=== PATIENT | female | born 1960 | race Caucasian/White ===

== ENCOUNTER 2021-03-10 08:48 | Observation (INO) ==
--- NOTE | 2021-02-23 13:57 | PAT Medication Instructions ---
Medication Instructions Date of Service February 23, 2021 Home Medications duloxetine 30 mg PO HS gabapentin 300 mg PO BID lisinopril 40 mg PO QAM oxybutynin chloride [Ditropan XL] 10 mg PO QAM potassium gluconate 595 mg PO BID DO NOT take the morning of surgery lisinopril 40 mg PO QAM oxybutynin chloride [Ditropan XL] 10 mg PO QAM potassium gluconate 595 mg PO BID Take morning of surgery With a small sip of water, OTHERWISE NOTHING TO EAT OR DRINK AFTER MIDNIGHT: gabapentin 300 mg PO BID Take evening before surgery duloxetine 30 mg PO HS gabapentin 300 mg PO BID potassium gluconate 595 mg PO BID Other Notes If you have any questions please call us at [phone] or [phone] or [phone] or [phone]
--- NOTE | 2021-02-25 11:57 | Anesthesiology Consultation ---
Date of Service February 25, 2021 Assessment & Plan (1) Encounter for pre-operative examination: Chart Review Chart Review: Acceptable Risk for Surgery (pending preop Covid testing results ) and Patient seen in Pre Admission Testing Per PAT appt on 02/25/21, patient denies any recent travel or large group activities. No known Covid positive contacts or Covid related symptoms. Educated patient to follow up with surgeon's office regarding Covid testing (did leave message with surgeon's office to follow up with patient re: Covid testing)= will await results. Educated on importance of self quarantining, social distancing and wearing mask in public both for the patient and household contacts. Seen by PCP 02/16/2021 = patient seen for preop for left TKA. " Patient is cleared for surgery." History Surgery Operation Date: 03/10/21 09:55 Proposed Procedures p Left Total Knee Arthroplasty - Robinson Nevarez, Height/Weight Height: 5 ft 4 in Weight: 109.5 kg Allergies Allergy/AdvReac Type Severity Reaction Status Date / Time sulindac Allergy Mild rash Verified 02/18/21 12:11 Medications Home Medications Medication Instructions Recorded Confirmed Last Taken duloxetine 30 mg PO HS 02/18/21 02/18/21 Unknown gabapentin 300 mg PO BID 02/18/21 02/18/21 Unknown lisinopril 40 mg PO QAM 02/18/21 02/18/21 Unknown oxybutynin chloride [Ditropan XL] 10 mg PO QAM 02/18/21 02/18/21 Unknown potassium gluconate 595 mg PO BID 02/18/21 02/18/21 Unknown Past Medical History Medical History (Updated 02/25/21 @ 12:21 by Suzan Sullivan PA-C) CKD (chronic kidney disease) Depression Fibromyalgia Stable Hyperlipidemia NO MEDS Hypertension Osteoarthritis Peripheral neuropathy BLE Prediabetes Per records Urinary frequency Exercise / Class Metabolic Activity II 4-5 Yardwork/Stairs/Walk up hill (one flight of stiars - no chest pain or SOB ) Past Family History Family History Father Family history of diabetes mellitus Other No family history of adverse response to anesthesia Past Surgical History Surgical History History of arthroscopy of knee with meniscus repair on left side History of partial hysterectomy History of tooth extraction Past Anesthesia History No Hx of Anesthesia Complications and No Family Hx of Anesthesia Complications History of PONV No Hx of PONV and No Hx of Motion Sickness Social History Smoking Status: Former smoker tobacco type: cigarettes Do You Dip or Chew Tobacco: No Smoking End Date: 2008 Hx Alcohol Use: No Hx Substance Use: No substance use type: does not use Review of Systems Reflux- relieved with Tums Hx of snoring- no hx of sleep study. Patient denies chest pain, shortness of breath, dyspnea on exertion, cough, wheezing, palpitations. No hx of seizures, stroke, [place]. No hx of blood clots or blood transfusions Physical Exam Vital Signs VITALS BP 141/91 P 88 TEMP 97.9 SP02 95% RESP 16 Constitutional no acute distress ENMT Mouth: no TMJ clicking Thyromental Distance: < 3.5 Finger Breadths (3.0) Mallampati Class: III Missing molars Neck + short neck and + thick neck; neck extension not limited Respiratory normal respiratory effort; no respiratory distress Auscultation: lungs clear to auscultation bilaterally; no wheezes Cardiovascular Rate/Rhythm: regular rate and regular rhythm Heart Sounds: no murmur Vessels: no carotid bruit Musculoskeletal Spine: no pain with cervical ROM Extremities: extremities normal to inspection Psychiatric Orientation: alert Testing Laboratory Results 02/25/21 12:09 02/25/21 12:09 PT 10.0 Seconds (9.0-12.0) 02/25/21 12:09 INR 1.0 (0.9-1.1) 02/25/21 12:09 APTT 25.1 Seconds (21.0-31.0) 02/25/21 12:09 Hemoglobin A1c 5.9 % (4.5-5.6) H 02/25/21 12:09 Urine Color Dark Yellow 02/25/21 12:09 Urine Appearance Clear (Clear) 02/25/21 12:09 Urine pH 5.0 (4.5-7.5) 02/25/21 12:09 Ur Specific [place] 1.024 (1.000-1.030) 02/25/21 12:09 Urine Protein Negative (Negative) 02/25/21 12:09 Urine Glucose (UA) Negative (Negative) 02/25/21 12:09 Urine Ketones Trace (Negative) H 02/25/21 12:09 Urine Nitrite Negative (Negative) 02/25/21 12:09 Ur Leukocyte Esterase Negative (Negative) 02/25/21 12:09 Blood Type B Positive 02/25/21 12:09 Antibody Screen NEGATIVE 02/25/21 12:09 Electrocardiogram Date: 02/25/21 Findings: + NSR @ (84bpm) Low voltage QRS. Inferior infarct (cited on or before August 22, 2020). Compared to Aug 22, 2020 EKG- minimal criteria for anterior infarct are no longer present per cardio. (By personal visual inspection- inferior infarct similar in appearance to February 19, 2019 EKG- had subsequent exercise ECHO stress test 04/09/19) Chest X-Ray Date: 02/25/21 Findings: + NAD The nodule described in the prior CT scan is not visible on conventional radiographic imaging Stress Test Date: 04/09/19 Type: exercise (ECHO ) Resting EF: 55-60% Resting LV Function: normal Resting RWMA: + none Valvular Disease: no significant valvular disease Stress echo was negative for inducible ischemia. Hypertensive BP response to exercise. Below average exercise tolerance. MPHR 93%. 7.0 METS achieved. Stress EKG response showed no evidence of ischemia. No arrhythmias noted with stress. Normal LV chamber size and wall thickness. Grade 1 diastolic dysfunction.
--- NOTE | 2021-02-25 12:33 | XRay Report ---
XR chest Pre-admission PA/Lat CLINICAL HISTORY: Preoperative chest. LEFT UPPER LOBE PULMONARY NODULE COMPARISON STUDY: CT scan dated 08/22/2020 FINDINGS: The cardiac and mediastinal contours are normal. There is no evidence of focal pulmonary co nsolidation. There is no evidence of failure. No pleural effusions are visualized.[The nodule describ ed in the prior CT scan is not visible on conventional radiographic imaging IMPRESSION: No active disease in the chest. ACT 112: Negative or not required by law. Electronically signed by: Kartik Banks M.D. 02/25/2021 12:31 PM
[2021-02-25 13:17] LABS: Appearance Urine Clear (Clear); Bilirubin Urine Negative (Negative); Blood Urine Negative (Negative); Color Urine Dark Yellow; Glucose Urine UA Negative (Negative); Ketones Urine Trace (Negative); Leukocyte Esterase Urine Negative (Negative); Nitrite Urine Negative (Negative); Protein Urine Negative (Negative); Specific Gravity Urine 1.024 (1.000-1.030); Urobilinogen Urine Negative (Negative)
[2021-02-25 13:27] LABS: Albumin Level 3.9 gm/dl (3.4-5.0); BUN Creatinine Ratio 23.9 (10-20); Calcium 10.2 mg/dl (8.5-10.1); Creatinine Clr Calc Pharmacy 78.8 ml/min; Est GFR (Non-African American) 67.3; Potassium 4.2 mmol/L (3.5-5.1)
[2021-02-25 13:32] LABS: Basophils # (auto) 0.04 K/uL (0-0.2); Basophils % (auto) 0.4 %; Eosinophils # (auto) 0.75 K/uL (0-0.5); Eosinophils % (auto) 8.2 %; Hematocrit (blood only) 41.2 % (37-47); Hemoglobin 13.9 g/dL (12.0-16.0); Immature Granulocytes # (auto) 0.02 K/uL (0.00-0.02); Immature Granulocytes % (auto) 0.2 %; Lymphocytes # (auto) 2.16 K/uL (1.2-3.4); Lymphocytes % (auto) 23.6 %; Mean Corpuscular Hemoglobin 27.6 pg (25-34); Mean Corpuscular Hgb Conc 33.7 g/dL (32-36); Mean Corpuscular Volume 81.9 fL (80-100); Monocytes # (auto) 0.69 K/uL (0.11-0.59); Monocytes % (auto) 7.5 %; Neutrophils % (auto) 60.1 %; Partial Thromboplastin Time 25.1 Seconds (21.0-31.0); Platelet Count 286 K/uL (130-400); RDW Coefficient of Variation 13.7 % (11.5-14.5); RDW Standard Deviation 41.1 fL (36.4-46.3); Red Blood Count 5.03 M/uL (4.2-5.4); White Blood Count 9.16 K/uL (4.8-10.8)
[2021-02-25 13:55] LABS: Estimated Average Glucose 123 mg/dl; Hemoglobin A1C 5.9 % (4.5-5.6)
--- NOTE | 2021-02-25 16:24 | Electrocardiogram Report ---
Test Reason : Blood Pressure : / mmHG Vent. Rate : 084 BPM Atrial Rate : 084 BPM P-R Int : 166 ms QRS Dur : 092 ms QT Int : 378 ms P-R-T Axes : 049 -05 067 degrees QTc Int : 446 ms Normal sinus rhythm Low voltage QRS Inferior infarct (cited on or before 22-AUG-2020) Abnormal ECG When compared with ECG of 22-AUG-2020 18:40, Minimal criteria for Anterior infarct are no longer Present Confirmed by Sheng Brannon ([id number]) on 02/25/2021 4:24:39 PM Referred By: Robinson Nevarez Confirmed By:Sheng Brannon
--- NOTE | 2021-03-06 21:47 | History & Physical Report ---
Date of Service March 10, 2021 Assessment & Plan (1) Degenerative joint disease of left knee: I have indicated the patient for left total knee replacement. The risks, benefits and complications of surgery were explained to the patient which include but not limited to infection, acute blood loss, DVT/PE, injury to nerves, vessels, bone, soft tissue, arthrofibrosis, chronic pain, failure of the prosthesis, knee dislocation, leg length discrepancy, need for additional surgery, cardiac and pulmonary events and . The patient wished to proceed with surgery and informed consent was obtained at this time. We will plan for 81mg ASA BID post-operatively for DVT prophylaxis. Upon discharge the patient will be discharged home with home health services. Appropriate clearances by PCP were obtained. History of Present Illness Chief Complaint: Left knee pain/DJD Primary Care Provider: Mame Garza MD The patient is a 60 year old female who presents with complaints of severe left knee pain and DJD. The patient has failed outpatient conservative treatments to this point which included NSAIDs, IA corticosteroid injection, JEFFERSON injection, home exercise/walking program. The patient's pain and limited function have progressed to the point where they severely hinder their activities of daily living and they no longer tolerate exercise programs. They are requesting to proceed with total knee replacement surgery. Allergies Allergy/AdvReac Type Severity Reaction Status Date / Time sulindac Allergy Mild rash Verified 03/10/21 09:35 Home Medications Medication Instructions Recorded Confirmed Type duloxetine 30 mg PO HS 02/18/21 03/10/21 History gabapentin 300 mg PO BID 02/18/21 03/10/21 History lisinopril 40 mg PO QAM 02/18/21 03/10/21 History oxybutynin chloride [Ditropan XL] 10 mg PO QAM 02/18/21 03/10/21 History potassium gluconate 595 mg PO BID 02/18/21 03/10/21 History Past Med/Surg History Medical History CKD (chronic kidney disease) Depression Fibromyalgia Stable Hyperlipidemia NO MEDS Hypertension Osteoarthritis Peripheral neuropathy BLE Prediabetes Per records Urinary frequency Surgical History History of arthroscopy of knee with meniscus repair on left side History of partial hysterectomy History of tooth extraction Family History Father Family history of diabetes mellitus Other No family history of adverse response to anesthesia Social History Smoking Status: Former smoker Smoking End Date: 2008; Second Hand Exposure: Yes ( A CHILD); Do You Dip or Chew Tobacco: No; Tobacco Cessation Education Requested by Patient: No Hx Alcohol Use: No Hx Substance Use: No Preferred Language: Danish Lift Supervisor Required: No Beliefs That Will Affect Care: None Current Living Situation: Significant Other Feels Safe at Home: Yes Safety Concerns: Feels Safe At This Time Assistive Devices: Cane and Glasses Review of Systems Review of Systems: All systems reviewed & are unremarkable except as noted in HPI & below Constitutional: as per Subjective / HPI Physical Exam Physical Exam: LLE NVSI +EHL/FHL/TA/GS SILT grossly, +2 DP pulse, compartments soft NT, limited painful ROM, +creptius. Constitutional: WD/WN, vitals as above Eyes: PERRL, conjunctivae normal, anicteric sclerae ENMT: external ear and nose normal, oropharynx normal Neck: trachea midline, no thyromegaly Respiratory: normal respiratory effort, lungs clear to auscultation Cardiovascular: RRR, no murmur, no edema Gastrointestinal (Abdomen): normal bowel sounds, soft, nontender, no hepatosplenomegaly Musculoskeletal: no cyanosis or clubbing, extremities motor strength 5/5 Skin: no rashes, warm and dry Neurologic: patellar DTR's 2+ bilat, sensation intact Psychiatric: A+Ox3, euthymic affect Lymphatic: no cervical or axillary lymphadenopathy Results & Data Results & Data ([facility]) Diagnostic Findings Multiple views of the knee demonstrates severe tricompartmental DJD with complete loss of the medial joint space. +osteophytes, +sclerosis. Pre Admission Testing Addendum Laboratory Results 02/25/21 12:09 02/25/21 12:09 PT 10.0 Seconds (9.0-12.0) 02/25/21 12:09 INR 1.0 (0.9-1.1) 02/25/21 12:09 APTT 25.1 Seconds (21.0-31.0) 02/25/21 12:09 Hemoglobin A1c 5.9 % (4.5-5.6) H 02/25/21 12:09 Urine Color Dark Yellow 02/25/21 12:09 Urine Appearance Clear (Clear) 02/25/21 12:09 Urine pH 5.0 (4.5-7.5) 02/25/21 12:09 Ur Specific [place] 1.024 (1.000-1.030) 02/25/21 12:09 Urine Protein Negative (Negative) 02/25/21 12:09 Urine Glucose (UA) Negative (Negative) 02/25/21 12:09 Urine Ketones Trace (Negative) H 02/25/21 12:09 Urine Nitrite Negative (Negative) 02/25/21 12:09 Ur Leukocyte Esterase Negative (Negative) 02/25/21 12:09 Blood Type B Positive 02/25/21 12:09 Antibody Screen NEGATIVE 02/25/21 12:09
[~2021-03-10 08:48] MED LIST: ACETAMINOPHEN 500 MG TAB PO SCH; BUPIVACAINE 0.5 % 5 MG/1 ML PF 10ML VIAL ONE; CeleBREX 200 MG CAP PO SCH; FAMOTIDINE 20 MG TAB PO SCH; GABAPENTIN 600 MG DOSE PO SCH; LR 500ML BOLUS, THEN 15ML/HR IV SCH; METOCLOPRAMIDE HCL 10 MG TABLET PO SCH; ROPIVACAINE 0.5% 5 MG/ML 30 ML VIAL ONE; ROPIVACAINE 0.5% HCL/PF 150 MG, BUPIVACAINE 0.75% MPF 20 ML, EPINEPHrine 30MG/30ML (OR ... INSTIL SCH; Scopolamine 1 MG TDSY TD SCH; TRANEXAMIC ACID 1,000 MG **IV Intra-op IV SCH; TRANEXAMIC ACID 1,000 MG **IV Pre-op IV SCH; ceFAZolin 2000MG 2,000 MG/15 ML SYR IV SCH; dexAMETHasone 4 MG TAB PO SCH
[2021-03-10] MEDS ORDERED: MIDAZOLAM HCL 1 MG/ML 2ML VIAL ONE (10:06)
[2021-03-10] MEDS ORDERED: fentaNYL citrate 100 MCG/2 ML VIAL ONE (10:07)
[2021-03-10 10:55] LABS: Influenza A virus by PCR Negative (Neg); Influenza B virus by PCR Negative (Neg); RSV by PCR Negative (Neg); SARS CoV2 RNA(COVID-19) InHosp NEGATIVE (Negative)
[2021-03-10] MEDS ORDERED: ePHEDrine sulfate 50 MG/ML AMP IV PRN (11:59)
[2021-03-10] MEDS ORDERED: fentaNYL citrate 100 MCG/2 ML VIAL IV PRN (11:59)
[2021-03-10] MEDS ORDERED: ATROPINE SULFATE 0.1 MG/ML 10ML SYR IV PRN (11:59)
[2021-03-10] MEDS ORDERED: HYDROmorphone INJ 2 MG/ML SYR/VIAL IV PRN (11:59)
--- NOTE | 2021-03-10 12:02 | History & Physical Bridge Note ---
Date of Service March 10, 2021 History & Physical Bridge Note I have examined the patient, reviewed the History & Physical and in the interval since the performance of the History & Physical I have noted the following changes of clinical significance: no changes noted
[2021-03-10] MEDS ORDERED: ORTHO JOINT ANESTHETIC ONE (12:19)
[2021-03-10] MEDS ORDERED: PHENYLEPHRINE HCL 10 MG/ML VIAL ONE (12:58)
[2021-03-10] MEDS ORDERED: PHENYLEPHRINE 100MCG/ML 5ML SYR ONE (12:58)
[2021-03-10] MEDS ORDERED: ePHEDrine sulfate 50 MG/ML SYR ONE (12:58)
--- NOTE | 2021-03-10 14:10 | Post Operative Brief Note ---
Immediate Post Op Note v1 Date of Surgery March 10, 2021 Pre & Post Diagnosis Operation Date: 03/10/21 11:35 Pre-Op Diagnosis: Unilateral Primary Osteoarthritis, Left Knee Post-Op Diagnosis: Unilateral Primary Osteoarthritis, Left Knee I identified the patient and participated in the time-out.: Yes Procedure Operation Date: 03/10/21 11:35 Actual Procedures p Left Total Knee Arthroplasty, Cemented(Left) - Robinson Nevarez DO Surgeon Robinson Nevarez DO Product Safety And Standards Engineer Ruben Roldan Estimated Blood Loss 55 Findings Consistent with Post-Op Diagnosis Fluids See anesthesia report Specimens Proximal tibia and distal femur bone fragments Anesthesia Type Spinal MAC Complications none Disposition Disposition: Recovery Room Overlapping Procedure I was present for: the critical portions of procedure. I was immediately available: during the entire case. Back up surgeon: was not required during procedure.
--- NOTE | 2021-03-10 14:12 | Operative Report ---
Post Operative Report Pre & Post Diagnosis Operation Date: 03/10/21 11:35 Pre-Op Diagnosis: Unilateral Primary Osteoarthritis, Left Knee Post-Op Diagnosis: Unilateral Primary Osteoarthritis, Left Knee I identified the patient and participated in the time-out.: Yes Procedure Operation Date: 03/10/21 11:35 Actual Procedures p Left Total Knee Arthroplasty, Cemented(Left) - Robinson Nevarez DO Surgeon Robinson Nevarez DO Boot And Saddle Repair Person Ruben Roldan Estimated Blood Loss 55 Findings Consistent with Post-Op Diagnosis Fluids See anesthesia report Specimens Proximal tibia and distal femur bone fragment Anesthesia Type Spinal MAC Complications none Disposition Disposition: Recovery Room Indications The patient is a 60-year-old female presents with long history of severe left knee tricompartmental DJD and failed outpatient conservative treatments including NSAIDs, bracing, injections and home walking/exercise program. The patient's symptoms have progressed to the point where it has been difficult to perform normal activities of daily living. I have indicated the patient for a left total knee arthroplasty, the risks and benefits and complications of the procedure include but are not limited to infection bleeding damage to bone, nerves, vessels, surrounding soft tissue, blood clots, loss of function, leg length discrepancy, dislocation, failure of the components, need for additional surgery and . The patient wished to proceed with surgery at this time and informed consent was obtained. Appropriate clearances were obtained. Description of Procedure COMPONENTS USED: Db persona knee system: Femur size 6 standard, Tibia size D, Tibial articulating surface 10 PS, Patella 29 mm Following induction of spinal anesthesia, a tourniquet was applied to the proximal aspect of the thigh and the patient's left leg was prepped and draped in the usual sterile manner. A timeout was performed, patient identified and site paco confirmed. Appropriate pre-operative IV antibiotics were given. The limb was exsanguinated with an Esmarch bandage and tourniquet was inflated to 300 mmHg. A longitudinal midline incision was made over the anterior knee. Subcutaneous tissue was sharply dissected down to fascia. Electrocautery was used for hemostasis. Next a parapatellar arthrotomy was performed. Patella was everted and the knee was flexed. A Palacio retractor was used to expose the synovium above on the anterior aspect of the femur and removed down to bone. Next, the anterior fat pad was removed to aid in visualization. The medial face of the tibia was cleared of soft tissue first with a Bovie and a richter elevator. This tissue was retracted posteriorly using a blunt Hohmann. Next, the extra-medullary tibial cutting guide was placed to the anterior aspect of the tibia. The tibia resection level was set taking 2mm from the defective tibial condyle. Resection depth was once again confirmed with paul wing. The medial and lateral collateral ligament was protected with two Hohmann retractors. The tibia guide was removed and proximal tibial bone fragment removed utilizing straight osteotome, electrocautery and Bailey. Next, the distal femur intramedullary canal was accessed utilizing the step drill. The intramedullary distal femur cutting guide was placed into the canal and pinned into place. The distal femur was cut on the 5 degree setting. Next the cutting guide was removed and the femur was sized. Care was taken to ensure appropriate pararescue manager all rotation and 3 degree holes were drilled. A size 6 4-in-1 cutting block was placed on the distal end of the femur and secured into place with two short headed screws. Two bent Hohmann retractors were placed to protect the medial and lateral collateral ligaments. The oscillating saw was used to cut anterior, posterior, anterior chamfer and posterior chamfer. The four and one cutting block was removed and bone fragments excised. Laminar payment manager was placed laterally and the ACL and PCL were removed followed by the medial meniscus and posterior medial osteophytes. Aquamantys was utilized for any posterior medial bleeders and Orthomix injected into the posterior medial capsule. A laminar payment manager was then placed in the medial compartment and the lateral meniscus and posterior osteophytes were removed. Aquamantys was utilized for any posterior lateral bleeders and Orthomix injected into the posterior lateral capsule. Next, drop massiel and spacer block were placed with the leg in flexion and extension to assess alignment and flexion/extension gaps. Next, the proximal tibia was assessed and two bent Hohmans were placed medial and lateral to aid in visualization. The appropriate tibia size and rotation was selected and a size D tibial plate was pinned into place with appropriate rotation. Preparation of the tibia was completed utilizing the matching tibial drill and broach. I then turned my attention back to the distal femur in a trial femoral component was impacted into place. Appropriate femoral width was assessed and selected. Next the femur PS box cut guide was placed and cut made with the reciprocal saw and the PS box provisional placed. A trial size 10 PS tibia articular tray was placed and varus-valgus balance assessed in 0 degrees of extension and 30, 60 and 90 degrees of flexion. A final tibial articular surface size 10 PS was chosen. Assess was gained to the patella and caliper utilized to measure width. The patella reamer was utilized and remaining bone removed with oscillating saw. A size 29 mm patella button was selected and the patella pegs drilled. Trial patella button was placed and tracking was assessed. The knee was found to be well balanced, well aligned with excellent patella tracking. The trials were removed and final components were obtained and assembled. The knee was irrigated copiously with sterile saline solution mixed with bacitracin. Access to the proximal tibia was once again obtained utilizing to the Hohmans and the proximal tibia and distal femur were dried with lap sponges. The final components were cemented into place and all excess cement was removed. A trial tibial articular surface was placed while cemented hardened. Knee stability was once again assessed and the final component inserted. A Betadine soak was performed. After 3 minutes, the knee was once more irrigated with copious sterile saline solution with bacitracin. The knee was injected with the remaining Orthomix which includes a combination of Ropivicaine 0.5% 150mg, Bupivicaine 0.5%/Epinephrine 1:200,000 30ml, Toradol 30mg, Dexamethasone 4mg, Ketamine 10mg, Clonidine 100mcg and NSS 30ml solution. The capsulotomy was closed with #1 Vicryl followed by subcutaneous closure with 2-0 Vicryl suture and a 3-0 V-lock suture. Skin was closed with natalie. A sterile dry dressing was applied which included karen incisional VAC, web roll and Tony wrap. Tourniquet was deflated at 83 minutes. The patient tolerated the procedure well and was taken to the PACU in stable condition. Due to the complex nature of the procedure, the entire surgery was performed with the operational assistance of Ruben Roldan PA-C. The assistant cook, under direct supervision, was involved in the actual performance of all aspects of the surgical procedure including patient positioning, hemostasis, tissue retraction, instrument management and wound closure. I attest to the content of the Intraoperative Record and any orders documented therein. Any exceptions are noted below.
--- NOTE | 2021-03-10 15:04 | XRay Report ---
XR knee LT 1 or 2V routine HISTORY: 60 years-old Female Surgical Post Op [knee total joint arthroplasty COMPARISON: None TECHNIQUE: 2 views of the left knee FINDINGS: Left knee total joint arthroplasty and patella resurfacing. Anterior midline skin natalie with expect ed postsurgical soft tissue swelling and deep tissue air. No acute fracture or unexpected opaque fore ign body. IMPRESSION: Left knee total joint arthroplasty and patella resurfacing with expected postoperative ch anges. ACT 112: Negative or not required by law. The above report was generated using voice recognition software. It may contain grammatical, syntax o r spelling errors. Electronically signed by: Jason Walton M.D. 03/10/2021 3:03 PM
[2021-03-10] MEDS: SODIUM CHLORIDE 0.9% 1000ML 1,000 ML IV SCH (15:10)
[2021-03-10] MEDS ORDERED: oxyCODONE HCL IR 5 MG TAB (IMMEDIATE RELEASE) PO PRN (15:12)
[2021-03-10] MEDS ORDERED: diphenhydrAMINE Capsule 25 MG CAP PO PRN (15:12)
[2021-03-10] MEDS ORDERED: NALOXONE HCL 0.4 MG/1 ML VIAL/CARP IV PRN (15:12)
[2021-03-10] MEDS ORDERED: bisacodyL 10 MG SUPP PR PRN (15:12)
[2021-03-10] MEDS ORDERED: HYDROmorphone INJ 0.5 MG/0.5 ML SYR IV PRN (15:12)
[2021-03-10] MEDS ORDERED: METOCLOPRAMIDE HCL INJ 5 MG/ML 2 ML VIAL IV PRN (15:12)
[2021-03-10] MEDS ORDERED: MAGNESIUM HYDROXIDE SUSP 30 ML UDC PO PRN (15:12)
[2021-03-10] MEDS ORDERED: ONDANSETRON INJ 2 MG/ML 2 ML VIAL IV PRN (15:12)
[2021-03-10] MEDS: KETOROLAC TROMETHAMINE 15 MG/ML VIAL IV SCH ×2 (15:55→21:29)
[2021-03-10] MEDS: Scopolamine CHECK PATCH PLACEMENT SCH (15:56)
--- NOTE | 2021-03-10 16:19 | Anesthesiology Progress Note ---
Date of Service March 10, 2021 Anesthesia Post Procedure Vital Signs Vital Signs: Temp Pulse Pulse Pulse Resp BP BP 03/10/21 16:04 36.4 C L 92 H 16 150/83 H 03/10/21 15:35 85 18 131/87 03/10/21 15:05 36.9 C 91 H 16 104/69 03/10/21 14:50 36.5 C 96 H 16 110/66 03/10/21 14:40 36.5 C 108 H 17 116/64 03/10/21 10:18 36.8 C 68 20 151/99 H Pulse Ox 03/10/21 16:04 99 03/10/21 15:35 96 03/10/21 15:05 95 03/10/21 14:50 96 03/10/21 14:40 96 03/10/21 10:18 94 Transfer of Care Handoff Completed per policy Notes Mental Status: alert / awake / arousable and participated in evaluation Patient Amnestic to Procedure: Yes Nausea / Vomiting: adequately controlled Pain: adequately controlled Airway Patency, RR, SpO2: stable & adequate BP & HR: stable & adequate Hydration State: stable & adequate Neuraxial Anesthesia: was administered and sensory block is resolving Anesthetic Complications: no major complications apparent
--- NOTE | 2021-03-10 19:21 | Orthopedic Progress Note ---
Date of Service March 10, 2021 Assessment & Plan (1) Degenerative joint disease of left knee: Status post left total knee arthroplasty -Ancef x24 -DVT prophylaxis: SCDs, teds, 81 mg ASA twice daily -Weight-bear as tolerates left lower extremity -PT/OT -Postoperative x-ray demonstrates a well aligned well fixed prosthesis without fracture or dislocation A.m. labs DC planning Admission and Anticipated Discharge Date Admission Date: March 10, 2021 Subjective Post Operative Progress Note Patient seen sitting up in bed, comfortable, denies complaints, pain well cont rolled, no acute issues. Review of Systems Review of Systems: All systems reviewed & are unremarkable except as noted in HPI & below Constitutional: as per Subjective / HPI Physical Exam Physical Exam: LLE NVSI +EHL/FHL/TA/GS SILT grossly, +2 DP pulse, compartments soft NT, dressing cdi. Constitutional: WD/WN, vitals as above Results & Data ([facility]) Vital Signs (Past 12 Hours) Vital Signs Temp Pulse Pulse Pulse Resp BP BP 03/10/21 19:04 36.6 C 89 16 127/77 03/10/21 18:12 36.7 C 96 H 18 143/83 H 03/10/21 17:05 36.6 C 100 H 20 145/91 H 03/10/21 16:04 36.4 C L 92 H 16 150/83 H 03/10/21 15:35 85 18 131/87 03/10/21 15:05 36.9 C 91 H 16 104/69 03/10/21 14:50 36.5 C 96 H 16 110/66 03/10/21 14:40 36.5 C 108 H 17 116/64 03/10/21 10:18 36.8 C 68 20 151/99 H Pulse Ox 03/10/21 19:04 95 03/10/21 18:12 97 03/10/21 17:05 95 03/10/21 16:04 99 03/10/21 15:35 96 03/10/21 15:05 95 03/10/21 14:50 96 03/10/21 14:40 96 03/10/21 10:18 94
[2021-03-10] MEDS ORDERED: SENNA 8.6 MG TAB PO SCH (21:00)
[2021-03-10] MEDS ORDERED: DULoxetine HCL 30 MG CAP PO SCH (21:00)
[2021-03-10] MEDS: DOCUSATE SODIUM 100 MG CAP PO SCH (21:20)
[2021-03-10] MEDS: GABAPENTIN 300 MG CAP PO SCH (21:21)
[2021-03-10] MEDS: ACETAMINOPHEN 500 MG TAB PO SCH (21:22)
[2021-03-10] MEDS: ceFAZolin 2000MG 2,000 MG/15 ML SYR IV SCH (21:28)
[2021-03-11] MEDS: Scopolamine CHECK PATCH PLACEMENT SCH ×2 (00:45→08:34)
[2021-03-11] MEDS: SODIUM CHLORIDE 0.9% 1000ML 1,000 ML IV SCH (01:47)
[2021-03-11] MEDS: KETOROLAC TROMETHAMINE 15 MG/ML VIAL IV SCH ×2 (03:18→08:37)
[2021-03-11] MEDS: ceFAZolin 2000MG 2,000 MG/15 ML SYR IV SCH (05:42)
[2021-03-11] MEDS: ACETAMINOPHEN 500 MG TAB PO SCH ×2 (05:43→13:39)
[2021-03-11 07:01] LABS: Hematocrit (blood only) 35.3 % (37-47); Hemoglobin 11.8 g/dL (12.0-16.0); Mean Corpuscular Hemoglobin 27.3 pg (25-34); Mean Corpuscular Hgb Conc 33.4 g/dL (32-36); Mean Corpuscular Volume 81.7 fL (80-100); Mean Platelet Volume 10.4 fL (7.4-10.4); Platelet Count 241 K/uL (130-400); RDW Coefficient of Variation 13.3 % (11.5-14.5); RDW Standard Deviation 40.2 fL (36.4-46.3); Red Blood Count 4.32 M/uL (4.2-5.4); White Blood Count 16.55 K/uL (4.8-10.8)
[2021-03-11 07:49] LABS: BUN Creatinine Ratio 20.8 (10-20); Calcium 8.6 mg/dl (8.5-10.1); Creatinine Clr Calc Pharmacy 59.4 ml/min; Est GFR (African American) 55.6; Potassium 4.5 mmol/L (3.5-5.1)
[2021-03-11] MEDS: DOCUSATE SODIUM 100 MG CAP PO SCH (08:34)
[2021-03-11] MEDS: GABAPENTIN 300 MG CAP PO SCH (08:34)
[2021-03-11] MEDS ORDERED: POTASSIUM CHLORIDE 10 MEQ TABCR PO SCH (09:00)
[2021-03-11] MEDS ORDERED: ASPIRIN 81 MG ECTAB PO SCH (09:00)
[2021-03-11] MEDS ORDERED: OXYBUTYNIN CHLORIDE XL 5 MG TABCR PO SCH (09:00)
[2021-03-11] MEDS ORDERED: lisinopril 40 MG TAB PO SCH (09:00)
[2021-03-11] MEDS ORDERED: MULTIVITAMIN TAB PO SCH (09:00)
--- NOTE | 2021-03-11 11:55 | Orthopedic Progress Note ---
Date of Service March 11, 2021 Assessment & Plan (1) Degenerative joint disease of left knee: Status post left total knee arthroplasty POD#1 -Ancef x24 -DVT prophylaxis: SCDs, teds, 81 mg ASA twice daily -Weight-bear as tolerates left lower extremity -PT/OT -Postoperative x-ray demonstrates a well aligned well fixed prosthesis without fracture or dislocation A.m. labs - as above, hgb 11.8 DC planning - home with HH Admission and Anticipated Discharge Date Admission Date: March 10, 2021 Subjective Post Operative Progress Note Patient seen sitting up in bed, comfortable, denies complaints, pain well controlled, no acute issues. Denies F/C/N/V/SOB/CP. Review of Systems Review of Systems: All systems reviewed & are unremarkable except as noted in HPI & below Constitutional: as per Subjective / HPI Physical Exam Physical Exam: LLE NVSI +EHL/FHL/TA/GS SILT grossly, +2 DP pulse, compartments soft NT, dressing cdi. Constitutional: WD/WN, vitals as above Results & Data ([facility]) Vital Signs (Past 12 Hours) Vital Signs Temp Pulse Resp BP Pulse Ox 03/11/21 08:38 36.8 C 84 16 132/75 95 03/11/21 07:32 37.0 C 97 H 16 112/68 98 03/11/21 04:26 37.0 C 97 H 16 112/68 98 Laboratory Results 03/11/21 03/11/21 Range/Units 06:48 06:48 WBC 16.55 H (4.8-10.8) K/uL RBC 4.32 (4.2-5.4) M/uL Hgb 11.8 L (12.0-16.0) g/dL Hct 35.3 L (37-47) % MCV 81.7 (80-100) fL MCH 27.3 (25-34) pg MCHC 33.4 (32-36) g/dL RDW Std Deviation 40.2 (36.4-46.3) fL RDW Coeff of Melisa 13.3 (11.5-14.5) % Plt Count 241 (130-400) K/uL MPV 10.4 (7.4-10.4) fL Sodium 138 (136-145) mmol/L Potassium 4.5 (3.5-5.1) mmol/L Chloride 109 H (98-107) mmol/L Carbon Dioxide 22 (21-32) mmol/L Anion Gap 7.0 (3-11) BUN 26 H (7-18) mg/dl Creatinine 1.23 H (0.6-1.2) mg/dl Est Cr Clr Drug Dosing 59.4 ml/min Est GFR ( Amer) 55.6 Est GFR (Non-Af Amer) 48.0 BUN/Creatinine Ratio 20.8 H (10-20) Glucose 154 H (70-99) mg/dl Calcium 8.6 (8.5-10.1) mg/dl
--- NOTE | 2021-03-11 17:51 | Discharge Summary ---
Date of Service March 11, 2021 Admission HPI Per Admitting Provider The patient is a 60 year old female who presents with complaints of severe left knee pain and DJD. The patient has failed outpatient conservative treatments to this point which included NSAIDs, IA corticosteroid injection, JEFFERSON injection, home exercise/walking program. The patient's pain and limited function have progressed to the point where they severely hinder their activities of daily living and they no longer tolerate exercise programs. They are requesting to proceed with total knee replacement surgery. Principal Diagnosis Left total knee replacement Discharge Exam LLE NVSI +EHL/FHL/TA/GS SILT grossly, +2 DP pulse, compartments soft NT, dressing cdi. Constitutional WD/WN, vitals as above Discharge Data Allergies Allergy/AdvReac Type Severity Reaction Status Date / Time sulindac Allergy Mild rash Verified 03/10/21 09:35 Procedures Performed Operation Date: 03/10/21 11:35 Actual Procedures p Left Total Knee Arthroplasty, Cemented(Left) - Robinson Nevarez DO Ordered Studies 03/10/21 05:00 US - OR guided needle placemen Routine Hospital Course (1) Degenerative joint disease of left knee: The patient is a 60 -year-old female who presents with long standing h istory of severe left knee DJD and failed outpatient conservative treatments. The patient's symptoms have progressed to the point where it has been difficult to perform even normal activities of daily living. I indicated the patient for a left total knee arthroplasty, the risks, benefits and complications of the procedure include but not limited to infection, bleeding, damage to bone, nerves, vessels, surrounding soft tissue, may develop blood clots, loss of function, leg length discrepancy, dislocation, failure of the components, loosening of the components, the need for additional surgery and . The patient wished to proceed with surgery at this time and informed consent was obtained. Hospital Course: On 03/10/21 the patient was taken to the operating room, adequate anesthesia administered and underwent a left total knee arthroplasty. The patient tolerated the procedure well and was taken to the PACU in stable condition. Post-operatively the patient was started on a DVT ppx medication and given appropriate IV antibiotics. Consults were placed to physical therapy, occupational therapy and case management. On POD#1, the patient did well overnight and their pain was well controlled. Labs were drawn and the Hgb was 11.8. The patient progressed well with PT. Dressings were changed at this time and the incision was clean, dry and intact. The patients hospital stay was relatively uneventful and they were deemed stable by the orthopedic team and consultants to be discharged home with HH on 03/10/21. Discharge Instructions: Upon discharge the patient may weight bear as tolerates through their operative extremity. They were instructed to keep the incision clean and dry at all times. The patient may shower but should not submerge the incision, avoid bat memo, pools and hot tubs. The patient was given a script for pain medication and should take as instructed. The patient was given a script for DVT ppx 81mg ASA BID and should take as directed. The patient was instructed to not drive or travel for long distances until cleared to do so. If the patient develops any symptoms of fevers, chills, nausea, vomiting, increased redness, swelling, pain or drainage from the surgical site, they should notify the office and/or proceed to the nearest emergency room. The patient should follow up in 10-14 days after surgery for their routine post-operative follow-up appointment and should call the office, to confirm the date and time. Status post left total knee arthroplasty POD#1 -Ancef x24 -DVT prophylaxis: SCDs, teds, 81 mg ASA twice daily -Weight-bear as tolerates left lower extremity -PT/OT -Postoperative x-ray demonstrates a well aligned well fixed prosthesis without fracture or dislocation A.m. labs - as above, hgb 11.8 DC planning - home with Total Time Total Time Spent Total Time Spent (In Minutes): 30 Discharge Plan Discharge Items Patient Disposition: Home - Home Health Services Reason For Visit: Unilateral Primary Osteoarthritis, Left Knee Discharge Diagnosis: Left total knee replacement Condition on Discharge: Good Activity: Per Instructions section Lifting: Wait until after follow-up appointment Bathing: Keep incision dry Bathing Comment: No bathing, pools or hot tubs. Sexual Activity: Wait until after follow-up appointment Exercise/Sports: Wait until after follow-up appointment Driving/Machine Use: No driving. Weightbearing: Full weightbearing Non-emergency contact: Primary Care Provider and Surgeon Call non-emergency contact if: you have any medication questions, your symptoms worsen, your pain is not controlled, your pain is worsening, your pain is unusual for you, your pain is concerning for you, you have a fever, your temperature is above 101, your wound has increased redness, your wound has increased drainage and your wound pain has increased Follow-up/Referrals: Mame Garza MD [Primary Care Provider] - Diet: Regular Addtl Attending Provider Instructions: ACTIVITY RECOMMENDATIONS: SELF CARE INSTRUCTIONS AFTER TOTAL KNEE REPLACEMENT A. You may need to continue a physical therapy program after discharge from the hospital. There are several options available to you. Your doctor will assist you in selecting the best one for you. 1. An out-patient facility 2 to 3 times a week for therapy or home therapy. 2. Continue working on all exercises taught to you in the hospital. Your goals should be to increase bending of your knee to 90 degrees and beyond and to fully straighten your knee. B. You may progress at your own pace from walking with a walker or crutches to a cane; then to no assistive devices. C. Make walking a part of your daily routine. Be up as much as comfortable with rest periods throughout the day. Rest with leg elevation is very important. Use the ice wrap frequently for the first 3-4 weeks. D. There are no restrictions on activities. You may ride in a car, shop, participate in enterprise software developer and all social activities. E. Wear the long elastic stockings (LUIS FELIPE hose) 20 hours a day for 2 weeks after surgery. They can be removed several times a day for laundering and for a bath. F. You may shower, no tub baths until cleared by your doctor. SPECIAL CARE INSTRUCTIONS: VERY IMPORTANT TO READ AND REVIEW A. There are a few signs you need to watch for after you are home. Call [facility] [place] if you notice any of the followin. Increased severe knee pain. Some pain is expected especially when you exercise. 2. Increased swelling in your leg or knee; pain or swelling of the calf muscle in either lower leg. 3. Any fluid drainage from the incision. 4. Shortness of breath or chest pain. B. Please call [facility] [place] at if you have any concerns or questions about your operation or recovery. The doctor or his nurse will return your call promptly. C. You must take antibiotics before dental work, bladder, bowel or other s urgery. Your doctor will provide you with a permanent care to carry describing this precaution. IMPORTANT: * REMEMBER TO TAKE ASPIRIN, 81 MG, TWICE DAILY FOR 4 WEEKS UNLESS OTHERWISE DIRECTED. THIS IS YOUR BLOOD THINNER. * HIGH RISK PATIENTS MAY BE PRESCRIBED A STRONGER BLOOD THINNER. THIS WILL BE PROVIDED AT DISCHARGE. * CALL IF INCREASED PAIN, REDNESS, DRAINAGE OR FEVER GREATER THAT 101. * WEAR LUIS FELIPE HOSE 20 HOURS PER DAY FOR 2 WEEKS. *BRENNA incisional vac is a special dressing covering your incision. This dressing provides a sterile dry environment while you are healing. The dressing is to be left in place for 7 days post-operatively. Your home nurse or surgeon will remove. If you develop any redness or blisters or have any questions notify your surgeon immediately. FOLLOW UP VISIT: If appointment is not already scheduled: Please call [facility] [place] to make a follow-up appointment for 2 weeks after your surgery at . Pending Studies at Discharge: No Stand-Alone Forms: My [facility], Opioid Pain Management, Smoking Cessation Medications and DC Order Prescriptions: New acetaminophen 500 mg Tablet 1,000 mg PO Q8 PRN (Reason: fever or pain) Qty: 90 RF: 0 aspirin 81 mg Tablet,Delayed Release (Dr/Ec) 81 mg PO BID Qty: 56 RF: 0 oxycodone 5 mg Tablet 5 mg PO Q6H MDD 4 PRN (Reason: pain) Qty: 30 RF: 0 sennosides [Senokot] 8.6 mg Tablet 17.2 mg PO HS PRN (Reason: constipation) Qty: 30 RF: 0 Continued oxybutynin chloride [Ditropan XL] 10 mg Tablet Extended Release 24hr 10 mg PO QAM RF: 0 gabapentin 300 mg Capsule 300 mg PO BID RF: 0 lisinopril 40 mg Tablet 40 mg PO QAM RF: 0 duloxetine 30 mg Capsule,Delayed Release(Dr/Ec) 30 mg PO HS RF: 0 potassium gluconate 595 mg (99 mg) Tablet 595 mg PO BID RF: 0 Discharge Orders: Discharge Order (Routine); Ordered 03/11/21 Ordered By: Robinson Crum/Other Patient Handouts: DVT Post Op Prevention Admission Data Admit Date/Time: 03/10/21 14:41 Attending Provider: Robinson Nevarez Admit Provider: Robinson Nevarez Primary Care Provider: Mame Garza Other Interventions: Discharge Summary Assessment (RN) Last Done: 03/11/21 07:32
== END 2021-03-11 14:16 | disposition home health service (06) ==
LOC: 3E 08:48 → ASU 08:48

== ENCOUNTER 2021-04-08 05:06 | Observation (INO) ==
[2021-04-08 05:56] LABS: Basophils # (auto) 0.08 K/uL (0-0.2); Basophils % (auto) 0.8 %; Eosinophils # (auto) 1.46 K/uL (0-0.5); Eosinophils % (auto) 13.7 %; Hematocrit (blood only) 33.6 % (37-47); Immature Granulocytes # (auto) 0.04 K/uL (0.00-0.02); Immature Granulocytes % (auto) 0.4 %; Lymphocytes # (auto) 2.85 K/uL (1.2-3.4); Lymphocytes % (auto) 26.8 %; Mean Corpuscular Hemoglobin 27.1 pg (25-34); Mean Corpuscular Hgb Conc 32.7 g/dL (32-36); Mean Corpuscular Volume 82.8 fL (80-100); Mean Platelet Volume 10.4 fL (7.4-10.4); Monocytes # (auto) 0.74 K/uL (0.11-0.59); Monocytes % (auto) 6.9 %; Neutrophils # (auto) 5.48 K/uL (1.4-6.5); Neutrophils % (auto) 51.4 %; Platelet Count 355 K/uL (130-400); RDW Coefficient of Variation 13.8 % (11.5-14.5); RDW Standard Deviation 41.9 fL (36.4-46.3); Red Blood Count 4.06 M/uL (4.2-5.4); White Blood Count 10.65 K/uL (4.8-10.8)
[2021-04-08 06:10] LABS: Partial Thromboplastin Ratio 0.9; Partial Thromboplastin Time 24.8 Seconds (21.0-31.0); Prothrombin Time 9.9 Seconds (9.0-12.0)
[2021-04-08 06:17] LABS: Alanine Aminotransferase 19 U/L (12-78); Albumin Level 3.6 gm/dl (3.4-5.0); Aspartate Aminotransferase 12 U/L (15-37); BUN Creatinine Ratio 26.6 (10-20); Blood Urea Nitrogen 30 mg/dl (7-18); Calcium 8.2 mg/dl (8.5-10.1); Carbon Dioxide 21 mmol/L (21-32); Chloride 114 mmol/L (98-107); Creatinine Clr Calc Pharmacy 64.3 ml/min; Est GFR (African American) 61.2 ml/min; Est GFR (Non-African American) 52.8 ml/min; Glucose 110 mg/dl (70-99); Potassium 4.3 mmol/L (3.5-5.1); Sodium 143 mmol/L (136-145)
[2021-04-08 06:22] LABS: Albumin Globulin Ratio 1.1 (0.9-2); Alkaline Phosphatase 87 U/L (45-117); Bilirubin,Total 0.3 mg/dl (0.2-1); Globulin 3.4 gm/dl (2.5-4.0); Troponin I < 0.015 ng/ml (0-0.045)
[2021-04-08] MEDS ORDERED: OPTIRAY 320 150ml IV ONE (06:44)
--- NOTE | 2021-04-08 07:06 | CT Scan Report ---
CT OF THE ABDOMEN AND PELVIS WITH CONTRAST CLINICAL HISTORY: Abdominal pain. COMPARISON STUDY: CT of the abdomen and pelvis August 22, 2020. TECHNIQUE: Following IV administration of 100 mL of Optiray, axial images of the abdomen and pelvis w ere obtained from the lung bases to the proximal femurs. Images were reviewed in the axial, sagittal, and coronal planes. IV contrast was administered without complication. Automated exposure control w as utilized for the study. A dose lowering technique was utilized adhering to the principles of SIRENA Bird. CT DOSE: 1149.95 mGycm FINDINGS: Lung bases are unremarkable. No pneumatosis, free air or portal venous gas is present. Ther e is probable hepatic steatosis. There are no hepatic lesions. There is no biliary or pancreatic duct al dilatation. The spleen and adrenal glands are unremarkable as is the right kidney. A 1.2 cm left r enal lesion reflects a cyst. There is no hydronephrosis. There is no evidence for a bowel obstruction . There is no evidence for acute appendicitis. The appendix is slightly dilated but there is no peria ppendiceal infiltration. There is extensive sigmoid diverticulosis without evidence for acute diverti culitis. There is no free air or abscess. Major vasculature is patent. There is no acute fracture or suspicious lesion within the visualized skeletal structures. The uterus is surgically absent. IMPRESSION: 1. No acute process within the abdomen or pelvis. 2. Extensive sigmoid diverticulosis without evidence for acute diverticulitis. 3. No bowel obstruction. No bowel wall thickening. ACT 112: Negative or not required by law. Electronically signed by: Jaquan Schwarz M.D. 04/08/2021 7:05 AM
--- NOTE | 2021-04-08 07:24 | Emergency Department Note ---
Impression & Plan Lower gastrointestinal hemorrhage ED Provider Note NAME: INDU GRIGGS AGE: 61 SEX: F : 1960 ARRIVES VIA: Walk-In INFORMANT: Patient, ED PROVIDER(S): Mykel Santoro MD CHIEF COMPLAINT: Rectal bleed HPI: This is a 61-year-old female who presents emergency department complaining of a rectal bleed. The patient reports she was camping approximately 3 days ago and was eating strawberry pies. She denies any suspicious water use and only drank bottled water. She reports she began noticing bloody stools approximately 3 days ago. Today the patient has had at least three bloody bowel movements sin ce this morning including one here in the emergency department. Patient reports she has never had a colonoscopy before. She reports nothing seems to make the bloody bowel movements better or worse. She denies any fevers or chills. She has not taken anything for the black bowel movements prior to arrival. ROS: See above HPI for pertinent positives & negatives. A total of 10 systems reviewed and were otherwise negative. PAST MEDICAL HISTORY: See Below PAST SURGICAL HISTORY: See Below FAMILY HISTORY: See Below SOCIAL HISTORY: See Below HOME MEDICATIONS: See Below ALLERGIES: See Below VITALS: See Below PHYSICAL EXAMINATION: VITAL SIGNS - Vital signs and nursing notes were reviewed. GENERAL - 61-year-old female appearing stated age who is in no acute distress. Communicates well with provider and answers questions appropriately. SKIN - Without rashes. HEAD - NC/AT. EYES - PERRL with EOMI bilaterally. Sclera anicteric. Palpebral conjunctiva pink and moist with no injection noted. EARS - No deformities of external structures noted on gross examination b ilaterally. NOSE - Midline and without cyanosis. No epistaxis or purulent drainage noted. Septum midline without deviation or septal hematoma noted. MOUTH/OROPHARYNX - Without perioral cyanosis. Buccal mucosa pink and moist and without leukoplakia. Tongue midline with equal elevation of palate bilaterally. No tonsillar hypertrophy, erythema, or exudates noted. dentition noted. NECK - Neck with FROM. Supple to palpation. lymphadenopathy noted. No nuchal rigidity. LUNGS - Chest wall symmetric without accessory muscle use, intercostals retractions, or central cyanosis. Normal vesicular breath sounds CTA B/L. No wheezes, rales, or rhonchi appreciated. CARDIAC - RRR with S1/S2. No murmur, rubs, or gallops appreciated. ABDOMEN - Abdominal contour [] without pulsations or visible masses. BS normoactive all four quadrants. No tenderness, palpable masses, hepatosplenomegaly, or ascites noted. RECTUM - BRBPR + Heme EXTREMITIES - No clubbing or peripheral cyanosis. No pretibial edema present. +3/5 radial, posterior tibial, and dorsalis pedis pulses palpated throughout. +5/5 strength noted in UE/LE bilaterally. NEUROLOGIC - Cranial nerves II through XII grossly intact. Sensory intact to light touch throughout. Patellar reflexes +2/4. PSYCH - A&Ox3 and cooperates fully with examiner. Pt is very pleasant and interacts well with examiner. MEDICAL DECISION MAKING: Patient was seen and evaluated as above in room C12. Review was performed of nursing notes and vital signs. I did review pertinent previous visits and patient history. After obtaining a thorough history and physical examination the above work up was performed. This 61-year-old female who presents emergency department complaining of multiple bloody bowel movements. Using shared medical decision making patient was sent for CAT scan of the abdomen pelvis. Hemoglobin appears to be stable however based on her CAT scan I suspect that the patient most likely has a diverticular bleed. I did discuss the case with the hospitalist service as well as the gastroenterology service. An order was placed for continuous cardiac monitoring. The monitor shows a rate of 96 with Normal Sinus rhythm. The patient was evaluated during a period of high volume and high acuity during the global COVID-19 pandemic, and that diagnosis was suspected/considered upon their initial presentation. Their evaluation, treatment and testing was consistent with current guidelines for patients who present with complaints or s ymptoms that may be related to COVID-19. Patient was seen while provider was wearing PPE. Triage Nursing notes reviewed. Prior medical records reviewed Vital Signs: reviewed and remarkable for no significant abnormalities Differential diagnosis: Appendicitis, ovarian cyst, ovarian torsion, ectopic , TOA, PID, infections, diverticulitis, UTI, obstruction, mesenteric ischemia, aortic pathology, inflammatory bowel disease, renal colic, PUD, pancreatitis, biliary pathology, hernia, volvulus, constipation, as well as other pathologies. ER treatment provided: See below Diagnostics interpreted by me: ECG: Normal sinus rhythm old inferior infarct no ST elevation or depression QTC is 467 ventricular rate is 93 EKG is compared to 02/25/2021 no change noted. Laboratory studies: As stated above and show below. Imaging studies: See below Consultation(s): GI, Internal Medicine Past Med/Surg History Medical History (Updated 04/09/21 @ 12:13 by Leon Burgos MD) CKD (chronic kidney disease) Depression Fibromyalgia Stable Hyperlipidemia NO MEDS Hypertension Lower gastrointestinal hemorrhage Osteoarthritis Peripheral neuropathy BLE Prediabetes Per records Urinary frequency Surgical History History of arthroscopy of knee with meniscus repair on left side History of partial hysterectomy History of tooth extraction Family History Father Family history of diabetes mellitus Other No family history of adverse response to anesthesia Social History Smoking Status: Former smoker Tobacco Type: Cigarettes Second Hand Exposure: No; Do You Dip or Chew Tobacco: No; Tobacco Cessation Education Requested by Patient: No (Quit) Hx Alcohol Use: No Hx Substance Use: No Preferred Language: Azeri Communication Ability: Effective 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: 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 Beliefs That Will Affect Care: Lutheran Lutheran Beliefs: Lutherian Current Living Situation: Other Current Living Situation Comment: Boyfriend Other Information That Helps Us Care for You: No Feels Safe at Home: Yes Safety Concerns: Feels Safe At This Time Assistive Devices: None Allergies Allergies Allergy/AdvReac Type Severity Reaction Status Date / Time sulindac Allergy Mild rash Verified 04/08/21 07:15 Home Meds Home Medications Medication Instructions Recorded Confirmed duloxetine 30 mg PO HS 02/18/21 04/08/21 gabapentin 300 mg PO BID 02/18/21 04/08/21 lisinopril 40 mg PO QAM 02/18/21 04/08/21 oxybutynin chloride [Ditropan XL] 10 mg PO QAM 02/18/21 04/08/21 potassium gluconate 595 mg PO BID 02/18/21 04/08/21 celecoxib 200 mg PO DAILY 04/08/21 04/08/21 Previous Rx's Medication Instructions Recorded acetaminophen 1,000 mg PO Q8 PRN #90 tab 03/10/21 aspirin 81 mg PO BID #56 tab 03/10/21 oxycodone 5 mg PO Q6H PRN #30 tab MDD 4 03/10/21 sennosides [Senokot] 17.2 mg PO HS PRN #30 tab 03/10/21 Results & Data (ED) Vital Signs Vital Signs - 24 hr 04/08/21 05:11 04/08/21 05:41 04/08/21 07:23 Temperature 36.6 C Temperature Source Temporal Artery Scan Pulse Rate 105 H 78 Pulse Rate [Right Finger] 90 Pulse Rhythm Regular Pulse Rhythm [Right Finger] Regular Pulse Strength [Right Finger] Normal Respiratory Rate 16 18 Respiratory Effort / Characteristics Non-Labored Non-Labored Spontaneous Respiratory Depth Normal Normal Respiratory Pattern Regular Regular Blood Pressure 162/99 H Blood Pressure [Right Arm] 138/81 Blood Pressure Mean 120 Blood Pressure Mean [Right Arm] 100 Blood Pressure Position [Right Arm] Sitting Pulse Oximetry 96 99 95 Oxygen Delivery Method Room Air Room Air Room Air Sepsis Recent Fever Within 48 Hours No Sepsis New/Unexplained Change in Mental Status No Sepsis Action Taken by Nursing No Action Required Home Medications Current Medication List: was personally reviewed by me Laboratory Data Attestation: I reviewed the patient's lab results. Result diagrams: 04/10/21 09:15 04/10/21 09:15 Lab Results 04/08/21 04/08/21 04/08/21 Range/Units 05:24 05:24 05:24 WBC 10.65 (4.8-10.8) K/uL RBC 4.06 L (4.2-5.4) M/uL Hgb 11.0 L (12.0-16.0) g/dL Hct 33.6 L (37-47) % MCV 82.8 (80-100) fL MCH 27.1 (25-34) pg MCHC 32.7 (32-36) g/dL RDW Std Deviation 41.9 (36.4-46.3) fL RDW Coeff of Melisa 13.8 (11.5-14.5) % Plt Count 355 (130-400) K/uL MPV 10.4 (7.4-10.4) fL Immature Gran % (Auto) 0.4 % Neut % (Auto) 51.4 % Lymph % (Auto) 26.8 % [place] % (Auto) 6.9 % Eos % (Auto) 13.7 % Baso % (Auto) 0.8 % Neut # (Auto) 5.48 (1.4-6.5) K/uL Lymph # (Auto) 2.85 (1.2-3.4) K/uL [place] # (Auto) 0.74 H (0.11-0.59) K/uL Eos # (Auto) 1.46 H (0-0.5) K/uL Baso # (Auto) 0.08 (0-0.2) K/uL Immature Gran # (Auto) 0.04 H (0.00-0.02) K/uL PT 9.9 (9.0-12.0) Seconds INR 1.0 (0.9-1.1) APTT 24.8 (21.0-31.0) Seconds PTT Ratio 0.9 Sodium 143 (136-145) mmol/L Potassium 4.3 (3.5-5.1) mmol/L Chloride 114 H (98-107) mmol/L Carbon Dioxide 21 (21-32) mmol/L Anion Gap 8.0 (3-11) BUN 30 H (7-18) mg/dl Creatinine 1.13 (0.6-1.2) mg/dl Est Cr Clr Drug Dosing 64.3 ml/min Est GFR ( Amer) 61.2 ml/min Est GFR (Non-Af Amer) 52.8 ml/min BUN/Creatinine Ratio 26.6 H (10-20) Glucose 110 H (70-99) mg/dl Calcium 8.2 L (8.5-10.1) mg/dl Total Bilirubin 0.3 (0.2-1) mg/dl AST 12 L (15-37) U/L ALT 19 (12-78) U/L Alkaline Phosphatase 87 (45-117) U/L Troponin I < 0.015 (0-0.045) ng/ml Total Protein 7.0 (6.4-8.2) gm/dl Albumin 3.6 (3.4-5.0) gm/dl Globulin 3.4 (2.5-4.0) gm/dl Albumin/Globulin Ratio 1.1 (0.9-2) POC Stool Occult Blood (Negative) COVID-19 Eval Order SARS-CoV-2 (PCR) (Negative) Blood Type Antibody Screen Crossmatch 04/08/21 04/08/21 04/08/21 Range/Units 05:40 05:40 05:41 WBC (4.8-10.8) K/uL RBC (4.2-5.4) M/uL Hgb (12.0-16.0) g/dL Hct (37-47) % MCV (80-100) fL MCH (25-34) pg MCHC (32-36) g/dL RDW Std Deviation (36.4-46.3) fL RDW Coeff of Melisa (11.5-14.5) % Plt Count (130-400) K/uL MPV (7.4-10.4) fL Immature Gran % (Auto) % Neut % (Auto) % Lymph % (Auto) % [place] % (Auto) % Eos % (Auto) % Baso % (Auto) % Neut # (Auto) (1.4-6.5) K/uL Lymph # (Auto) (1.2-3.4) K/uL [place] # (Auto) (0.11-0.59) K/uL Eos # (Auto) (0-0.5) K/uL Baso # (Auto) (0-0.2) K/uL Immature Gran # (Auto) (0.00-0.02) K/uL PT (9.0-12.0) Seconds INR (0.9-1.1) APTT (21.0-31.0) Seconds PTT Ratio Sodium (136-145) mmol/L Potassium (3.5-5.1) mmol/L Chloride (98-107) mmol/L Carbon Dioxide (21-32) mmol/L Anion Gap (3-11) BUN (7-18) mg/dl Creatinine (0.6-1.2) mg/dl Est Cr Clr Drug Dosing ml/min Est GFR ( Amer) ml/min Est GFR (Non-Af Amer) ml/min BUN/Creatinine Ratio (10-20) Glucose (70-99) mg/dl Calcium (8.5-10.1) mg/dl Total Bilirubin (0.2-1) mg/dl AST (15-37) U/L ALT (12-78) U/L Alkaline Phosphatase (45-117) U/L Troponin I (0-0.045) ng/ml Total Protein (6.4-8.2) gm/dl Albumin (3.4-5.0) gm/dl Globulin (2.5-4.0) gm/dl Albumin/Globulin Ratio (0.9-2) POC Stool Occult Blood Positive A (Negative) COVID-19 Eval Order Covid19 at [facility] SARS-CoV-2 (PCR) NEGATIVE (Negative) Blood Type Antibody Screen Crossmatch 04/08/21 Range/Units 05:59 WBC (4.8-10.8) K/uL RBC (4.2-5.4) M/uL Hgb (12.0-16.0) g/dL Hct (37-47) % MCV (80-100) fL MCH (25-34) pg MCHC (32-36) g/dL RDW Std Deviation (36.4-46.3) fL RDW Coeff of Melisa (11.5-14.5) % Plt Count (130-400) K/uL MPV (7.4-10.4) fL Immature Gran % (Auto) % Neut % (Auto) % Lymph % (Auto) % [place] % (Auto) % Eos % (Auto) % Baso % (Auto) % Neut # (Auto) (1.4-6.5) K/uL Lymph # (Auto) (1.2-3.4) K/uL [place] # (Auto) (0.11-0.59) K/uL Eos # (Auto) (0-0.5) K/uL Baso # (Auto) (0-0.2) K/uL Immature Gran # (Auto) (0.00-0.02) K/uL PT (9.0-12.0) Seconds INR (0.9-1.1) APTT (21.0-31.0) Seconds PTT Ratio Sodium (136-145) mmol/L Potassium (3.5-5.1) mmol/L Chloride (98-107) mmol/L Carbon Dioxide (21-32) mmol/L Anion Gap (3-11) BUN (7-18) mg/dl Creatinine (0.6-1.2) mg/dl Est Cr Clr Drug Dosing ml/min Est GFR ( Amer) ml/min Est GFR (Non-Af Amer) ml/min BUN/Creatinine Ratio (10-20) Glucose (70-99) mg/dl Calcium (8.5-10.1) mg/dl Total Bilirubin (0.2-1) mg/dl AST (15-37) U/L ALT (12-78) U/L Alkaline Phosphatase (45-117) U/L Troponin I (0-0.045) ng/ml Total Protein (6.4-8.2) gm/dl Albumin (3.4-5.0) gm/dl Globulin (2.5-4.0) gm/dl Albumin/Globulin Ratio (0.9-2) POC Stool Occult Blood (Negative) COVID-19 Eval Order SARS-CoV-2 (PCR) (Negative) Blood Type B Positive Antibody Screen NEGATIVE Crossmatch See Detail Administered Medications Discontinued Medications Duloxetine HCl (Duloxetine Hcl 30 Mg Cap) 30 mg PO HS ROSE Stop: 05/08/21 20:59 Last Admin: 04/09/21 20:33 Dose: 30 mg Documented by: [id number] Admin: 04/08/21 20:15 Dose: 30 mg Documented by: [id number] Gabapentin (Gabapentin 300 Mg Cap) 300 mg PO BID ROSE Stop: 05/08/21 20:59 Last Admin: 04/10/21 08:17 Dose: 300 mg Documented by: [id number] Admin: 04/09/21 20:34 Dose: 300 mg Documented by: [id number] Admin: 04/09/21 09:44 Dose: Not Given Documented by: [id number] Admin: 04/08/21 20:15 Dose: 300 mg Documented by: [id number] Pantoprazole Sodium 40 mg/ (Syringe) 10 mls @ 5 mls/min IV BID ROSE Stop: 05/08/21 20:59 Last Admin: 04/10/21 08:17 Dose: 5 mls/min Documented by: [id number] Admin: 04/09/21 20:34 Dose: 5 mls/min Documented by: [id number] Admin: 04/09/21 09:44 Dose: 5 mls/min Documented by: [id number] Admin: 04/08/21 20:15 Dose: 5 mls/min Documented by: [id number] Ioversol (Optiray 320 150ml) 100 ml IV ONCE ONE Stop: 04/08/21 06:45 Last Admin: 04/08/21 06:44 Dose: 100 ml Documented by: [id number] Lidocaine HCl (Lidocaine Hcl 2% 2 Ml Vial/Amp(20mg/Ml)) Confirm Administered Dose 2 ml INFIL .STK-MED ONE Stop: 04/09/21 12:18 Last Admin: 04/09/21 16:27 Dose: Not Given Documented by: [id number] Lidocaine HCl (Lidocaine Hcl 2% 2 Ml Vial/Amp(20mg/Ml)) Confirm Administered D ose 2 ml INFIL .ST-MED ONE Stop: 04/09/21 12:21 Last Admin: 04/09/21 16:27 Dose: Not Given Documented by: [id number] Lisinopril (Lisinopril 40 Mg Tab) 40 mg PO [facility] Stop: 05/09/21 08:59 Last Admin: 04/10/21 09:20 Dose: 40 mg Documented by: [id number] Admin: 04/09/21 14:03 Dose: 40 mg Documented by: [id number] Oxybutynin Chloride (Oxybutynin Chloride Xl 5 Mg Tabcr) 10 mg PO [facility] Stop: 05/09/21 08:59 Last Admin: 04/10/21 08:17 Dose: 10 mg Documented by: [id number] Admin: 04/09/21 09:44 Dose: Not Given Documented by: [id number] Polyethylene Glycol/Electrolytes (Lavage Solution 4000ml) 16 dose PO TODAY@1700 [facility] Stop: 04/09/21 02:30 Last Admin: 04/08/21 17:11 Dose: 16 dose Documented by: [id number] Propofol (Propofol Iv Emulsion 10 Mg/Ml 20 Ml Vial) Confirm Administered Dose 200 mg IV .ST-MED ONE Stop: 04/09/21 12:18 Last Admin: 04/09/21 16:27 Dose: Not Given Documented by: [id number] Propofol (Propofol Iv Emulsion 10 Mg/Ml 20 Ml Vial) Confirm Administered Dose 200 mg IV .STK-MED ONE Stop: 04/09/21 12:21 Last Admin: 04/09/21 16:27 Dose: Not Given Documented by: [id number] Propofol (Propofol Iv Emulsion 10 Mg/Ml 20 Ml Vial) Confirm Administered Dose 200 mg IV .STK-MED ONE Stop: 04/09/21 13:03 Last Admin: 06/10/21 16:28 Dose: Not Given Documented by: [id number] Propofol (Propofol Iv Emulsion 10 Mg/Ml 20 Ml Vial) Confirm Administered Dose 200 mg IV .Computime ONE Stop: 04/09/21 13:04 Last Admin: 04/09/21 16:28 Dose: Not Given Documented by: [id number] Imaging Data Attestation: I personally reviewed and interpreted this imaging study as follows: Radiologist's Impression: Abdomen/Pelvis CT 04/08/21 05:25 CT OF THE ABDOMEN AND PELVIS WITH CONTRAST CLINICAL HISTORY: Abdominal pain. COMPARISON STUDY: CT of the abdomen and pelvis August 22, 2020. TECHNIQUE: Following IV administration of 100 mL of Optiray, axial images of the abdomen and pelvis were obtained from the lung bases to the proximal femurs. Images were reviewed in the axial, sagittal, and coronal planes. IV contrast was administered without complication. Automated exposure control was utilized for the study. A dose lowering technique was utilized adhering to the principles of ALARA. CT DOSE: 1149.95 mGycm FINDINGS: Lung bases are unremarkable. No pneumatosis, free air or portal venous gas is present. There is probable hepatic steatosis. There are no hepatic lesions. There is no biliary or pancreatic ductal dilatation. The spleen and adrenal glands are unremarkable as is the right kidney. A 1.2 cm left renal lesion reflects a cyst. There is no hydronephrosis. There is no evidence for a bowel obstruction. There is no evidence for acute appendicitis. The appendix is slightly dilated but there is no periappendiceal infiltration. There is extensi ve sigmoid diverticulosis without evidence for acute diverticulitis. There is no free air or abscess. Major vasculature is patent. There is no acute fracture or suspicious lesion within the visualized skeletal structures. The uterus is surgically absent. IMPRESSION: 1. No acute process within the abdomen or pelvis. 2. Extensive sigmoid diverticulosis without evidence for acute diverticulitis. 3. No bowel obstruction. No bowel wall thickening. ACT 112: Negative or not required by law. Electronically signed by: Jaquan Schwarz M.D. 04/08/2021 7:05 AM Discharge Plan Visit Data Chief Complaint: Rectal Bleed Stated Complaint: BLEEDING FROM RECTUM,DIARRHEA ED Provider: Mykel Santoro Discharge Problem: Lower gastrointestinal hemorrhage Patient Disposition: Admitted As Inpatient Condition: Good Discharge Instructions Interventions: ED Discharge Assessment Last Done: 04/08/21 14:06
--- NOTE | 2021-04-08 09:28 | History & Physical Report ---
Date of Service April 08, 2021 Assessment & Plan (1) Lower gastrointestinal hemorrhage: - Admit to tele - Hgb of 11, trended downward from 13 over 2 months ago. Was 11.8 at time of discharge on 03/10/21 from most recent hospitalization for Left knee replacement, pt was placed on asa 81 mg BID at that time. Will hold aspirin and celecoxib. -CT abd/pelvis reviewed showing diverticulosis without diverticulitis. - Pt does not endorse abd complaints other than bloody bowel movements. Has had 8 BM since this morning. Has not had colonoscopy before for routine screening. Family hx of multiple malignancy - lung, liver, ovarian. - GI consulted- allow clears today and plan for c-scope and EGD tomorrow. NPO at midnight, golytely prep. - PPI BID IV - Currently tachycardic with HR in 90s, BP is 163/98 on most recent check - Trend H&H q8H, next at 11am - Follow O&P stool - COVID-19 neg - Type and cross, holding 2 U PRBCs, attending to obtain consent. (2) Hypertension: - Allow lisinopril for now, may need to hold in AM pending BP and bleed. (3) Hyperlipidemia: - Diet, not on statin therapy (4) CKD (chronic kidney disease): - Follow with am BMP - BUN 30, elevated secondary to acute gi bleed as above - Cr is 1.13 and appears to be around her stage II baseline (5) Depression: - Cont cymbalta 30 mg HS (6) Prediabetes: - Diet and exercise to be encouraged - A1C= 5.9 at end of January this year (7) Status post total left knee replacement: - Completed by Dr. Nevarez on 03/10, nearly 1 month ago. - Holding baby asa 81 mg BID and celecoxib - pending colonoscopy results - may need to discuss if she can stop taking DVT ppx with ortho. DVT ppx: teds, no chemical anticoagulation in the setting of GI bleed. CODE: Full Dispo: From home, likely to remain in the hospital x 1-2 days History of Present Illness Primary Care Provider: Mame Garza MD This is a 61 yo F with PMHx of s/p Left total knee replacement on 03/10/21, HTN, HLD, Peripheral neuropathy, fibromyalgia, CKD, prediabetes, depression and remote smoking hx of 25 pack years, quit in 2008, who presents with acute blood bowel movements x 2 days. She had been camping last Tuesday through Tuesday, and came home yesterday. She had noticed one bloody bowel movement on Tuesday but thought that it was dye from a strawberry mountain pie she had eaten. Then yesterday had bright red bloody stool x 1. She had called her family doctor and they recommended that she come into the office and had an appointment for today. She then presented to the ER early this morning with continued bright red bloody bowel movements, first episode today woke her up from sleep. She denies any abdominal pain, nausea or vomiting. She further denies any lightheadedness or dizziness, chest pain or shortness of breath. Total today she has had at least 8 bloody bowel movements since waking up. Denies any dark tarry stools. Patient denies history of such. She has never had a colonoscopy in the past for routine screening. She denies any drinking from streams or consumption of raw or undercooked foods during her camping trip. She did not swim in [place] or accidentally consume this water or prepare food in it. Pt reports having bottled water on their trip. She reports multiple family cancers involving lung cancer, liver cancer and ovarian, however not GI. Plans for colonoscopy/egd tomorrow. GI has been consulted. Pt has never received a blood transfusion before, but is agreeable if needed. Allergies Allergy/AdvReac Type Severity Reaction Status Date / Time sulindac Allergy Mild rash Verified 04/08/21 07:15 Home Medications Medication Instructions Recorded Confirmed Type duloxetine 30 mg PO HS 02/18/21 04/08/21 History gabapentin 300 mg PO BID 02/18/21 04/08/21 History lisinopril 40 mg PO QAM 02/18/21 04/08/21 History oxybutynin chloride [Ditropan XL] 10 mg PO QAM 02/18/21 04/08/21 History potassium gluconate 595 mg PO BID 02/18/21 04/08/21 History acetaminophen 1,000 mg PO Q8 PRN #90 tab 03/10/21 04/08/21 Rx aspirin 81 mg PO BID #56 tab 03/10/21 04/08/21 Rx oxycodone 5 mg PO Q6H PRN #30 tab MDD 4 03/10/21 04/08/21 Rx sennosides [Senokot] 17.2 mg PO HS PRN #30 tab 03/10/21 04/08/21 Rx celecoxib 200 mg PO DAILY 04/08/21 04/08/21 History Past Med/Surg History Medical History CKD (chronic kidney disease) Depression Fibromyalgia Stable Hyperlipidemia NO MEDS Hypertension Osteoarthritis Peripheral neuropathy BLE Prediabetes Per records Urinary frequency Surgical History History of arthroscopy of knee with meniscus repair on left side History of partial hysterectomy History of tooth extraction Family History Father Family history of diabetes mellitus Other No family history of adverse response to anesthesia Social History Smoking Status: Former smoker Tobacco Type: Cigarettes Second Hand Exposure: No; Do You Dip or Chew Tobacco: No; Tobacco Cessation Education Requested by Patient: No (Quit) Hx Alcohol Use: No Hx Substance Use: No Preferred Language: Ukrainian Communication Ability: Effective Filament Maker Required: Yes Beliefs That Will Affect Care: Congregation Congregation Beliefs: Lutherian Current Living Situation: Other Current Living Situation Comment: Boyfriend Other Information That Helps Us Care for You: No Feels Safe at Home: Yes Safety Concerns: Feels Safe At This Time Assistive Devices: Glasses Review of Systems Review of Systems: Constitutional: No fever, sweats or chills Eyes: No diplopia, no worsening or blurred vision ENT: normal hearing, no trouble swallowing Respiratory: No cough, sputum, dyspnea at rest or on exertion Cardiovascular: No chest pain, tightness or palpitations Abdomen: As per HPI. Musculoskeletal: + Left knee doing well, hiking, walking without difficulty, no joint pain, calf pain, swelling Neurologic: No weakness, numbness/tingling, or balance problems Psychiatric: No anxiety or depression Skin: No rash or itch Physical Exam Physical Exam: General: awake, alert, no apparent distress, + obese BMI 41.7 Head: Normocephalic, atraumatic ENT: PERRL, EOMI, no pharyngeal exudate, mucous membranes slightly dry Chest: Clear to auscultation, on room air, no adventitious breath sounds Cardiac: Regular rate and rhythm, no murmur, no JVD, normal peripheral pulses, good capillary refill Abdominal: NABS x 4 quadrants, soft, nondistended, nontender to palpation, no rebound or guarding Extremities: Left knee status post TKA, incision healing well, minimal edema, no erythema, no fluid wave, ecchymosis is resolving. Otherwise normal inspection, no peripheral edema or erythema, calfs nontender to palpation Psych: Normal mood and affect Neuro: AAO x 3, strength intact bilaterally and rated 5/5, no motor deficits, speech is clear, no peripheral sensory deficits Results & Data Results & Data ([facility]) Vital Signs (Past 12 Hours) Vital Signs Temp Pulse Pulse Resp BP BP Pulse Ox 04/08/21 09:02 94 H 20 163/98 H 95 04/08/21 07:23 90 18 138/81 95 04/08/21 05:41 78 99 04/08/21 05:11 36.6 C 105 H 16 162/99 H 96 Diagnostic Findings Abdomen/Pelvis CT 04/08/21 05:25 CT OF THE ABDOMEN AND PELVIS WITH CONTRAST CLINICAL HISTORY: Abdominal pain. COMPARISON STUDY: CT of the abdomen and pelvis August 22, 2020. TECHNIQUE: Following IV administration of 100 mL of Optiray, axial images of the abdomen and pelvis were obtained from the lung bases to the proximal femurs. Images were reviewed in the axial, sagittal, and coronal planes. IV contrast was administered without complication. Automated exposure control was utilized for the study. A dose lowering technique was utilized adhering to the principles of ALARA. CT DOSE: 1149.95 mGycm FINDINGS: Lung bases are unremarkable. No pneumatosis, free air or portal venous gas is present. There is probable hepatic steatosis. There are no hepatic lesions. There is no biliary or pancreatic ductal dilatation. The spleen and adrenal glands are unremarkable as is the right kidney. A 1.2 cm left renal lesion reflects a cyst. There is no hydronephrosis. There is no evidence for a bowel obstruction. There is no evidence for acute appendicitis. The appendix is slightly dilated but there is no periappendiceal infiltration. There is extensive sigmoid diverticulosis without evidence for acute diverticulitis. There is no free air or abscess. Major vasculature is patent. There is no acute fracture or suspicious lesion within the visualized skeletal structures. The uterus is surgically absent. IMPRESSION: 1. No acute process within the abdomen or pelvis. 2. Extensive sigmoid diverticulosis without evidence for acute diverticulitis. 3. No bowel obstruction. No bowel wall thickening. ACT 112: Negative or not required by law. Electronically signed by: Jaquan Schwarz M.D. 04/08/2021 7:05 AM ECG Additional Comments: 08-APR-2021 05:38:33 [facility]-EDSTAT ROUTINE RETRIEVAL Poor data quality, interpretation may be adversely affected Normal sinus rhythm Low voltage QRS Inferior infarct (cited on or before 22-AUG-2020) Cannot rule out Anterior infarct , age undetermined Abnormal ECG When compared with ECG of 25-FEB-2021 12:06, QRS duration has decreased Minimal criteria for Anterior infarct are now Present 25mm/s 10mm/mV 150Hz 9.0.9 12SL 241 FILIPE: 10 Referred by: REFERRED SELF Unconfirmed Vent. rate 93 BPM NC interval 148 ms QRS duration 70 ms QT/QTc 376/467 ms Code Status & VTE Plan Code Status Full Code - discussed with patient at bedside VTE Prophylaxis Plan VTE Prophylaxis will be ordered: Yes Supervising Physician Co-Signing Physician Notes Attending addendum The patient was seen and examined in medical telemetry unit She was admitted with profuse lower GI bleed without pain Denies any significant symptoms Has not had any bowel movement since admission On examination No apparent distress at rest Hemodynamically stable Chest-clear to auscultate bilaterally Heart-S1-S2, regular Abdomen-benign, nontender, bowel sound present Extremities-trace edema bilaterally Admission labs, EKG and imaging studies reviewed Has significant asymptomatic lower GI bleed likely secondary to diverticular origin GI consulted We will have colonoscopy tomorrow Agree with assessment and plan as outlined above by Lizzie novoa
--- NOTE | 2021-04-08 10:13 | Gastrointestinal Consultation ---
Date of Consultation April 08, 2021 Assessment & Plan (1) Lower gastrointestinal hemorrhage: Pt is a 61 y/o female seen for rectal bleeding and loose dark stools x 3 days. VS, blood ct stable. She recently had L knee replacement, prior to that had been on NSAIDs for pain control. CT w signs of diverticulosis but no diverticulitis, no inflammatory or obstructive signs. DDX: PUD, diverticular bleed, AVMs. - PPI IV BID - Monitor blood ct and transfuse prn - Stool cx, Cdiff check for diarrhea to r/o infectious process - CL diet today, keep NPO after midnight - Plan for EGD/colonoscopy eval tomorrow - Defer CT abd/pelvis at this time given abcense of abd pain Supervising Physician Co-Signing Physician Notes I performed a history and physical examination of the patient today, including specifically on physical exam - soft abdomen. I have discussed the patient's management with the advanced practitioner. Please refer to the nurse practitioner's note for the documented findings and plan of care. EGD/colonoscopy tomorrow. History of Present Illness Reason for Consultation: Rectal bleeding Requesting Physician: Dr. Mykel Santoro Attending Physician: Dr. Mariana Messer History of Present Illness Pt is a 61 y/o female who presented to ED w c/o rectal bleeding x 3 days. She has associated dark loose stools. Denies N/V, abd pain. Denies fever, chills, CP, SOB, light headedness, dizziness. This morning she woke up at 4:30a with first episode bloody diarrhea and since coming into ED already had 3 episodes. On eval, labs showed H/H 11/33, WBC 10, Plt 355, INR 1.0. BUN/Cr 30/1.1. CT abd/pelvis showed sigmoid diverticulosis w/o diverticulitis, no other signs of inflammatory or obstructive changes. Pt just had L knee replacement weeks ago. Prior to surgery had been taking Meloxicam. Took Oxycodone and a dose of Aleve x 2 tabs after surgery for pain control. Had been on ASA 81mg BID. Denies any anticoagulant. Denies sick contact, raw/undercooked foods, antibx use No ETOH, tobacco, illicit drugs No family hx of colorectal ca. Brother w prostate ca and other non GI related malignancies on several family members Never had EGD/Colonoscopy before Allergies Allergy/AdvReac Type Severity Reaction Status Date / Time sulindac Allergy Mild rash Verified 04/08/21 07:15 Home Medications Medication Instructions Recorded Confirmed Type duloxetine 30 mg PO HS 02/18/21 04/08/21 History gabapentin 300 mg PO BID 02/18/21 04/08/21 History lisinopril 40 mg PO QAM 02/18/21 04/08/21 History oxybutynin chloride [Ditropan XL] 10 mg PO QAM 02/18/21 04/08/21 History potassium gluconate 595 mg PO BID 02/18/21 04/08/21 History acetaminophen 1,000 mg PO Q8 PRN #90 tab 03/10/21 04/08/21 Rx aspirin 81 mg PO BID #56 tab 03/10/21 04/08/21 Rx oxycodone 5 mg PO Q6H PRN #30 tab MDD 4 03/10/21 04/08/21 Rx sennosides [Senokot] 17.2 mg PO HS PRN #30 tab 03/10/21 04/08/21 Rx celecoxib 200 mg PO DAILY 04/08/21 04/08/21 History Patient History Medical History CKD (chronic kidney disease) Depression Fibromyalgia Stable Hyperlipidemia NO MEDS Hypertension Osteoarthritis Peripheral neuropathy BLE Prediabetes Per records Urinary frequency Surgical History History of arthroscopy of knee with meniscus repair on left side History of partial hysterectomy History of tooth extraction Family History Father Family history of diabetes mellitus Other No family history of adverse response to anesthesia Social History Smoking Status: Former smoker Tobacco Type: Cigarettes Second Hand Exposure: Yes ( A CHILD); Hx Alcohol Use: No Hx Substance Use: No Preferred Language: Cuban Communication Ability: Effective Pediatrician Required: No Beliefs That Will Affect Care: None Current Living Situation: Significant Other Feels Safe at Home: Yes Assistive Devices: Cane, Glasses and Walker Review of Systems Review of Systems: All systems reviewed & are unremarkable except as noted in HPI & below Physical Exam Constitutional: WD/WN, vitals as above well groomed, cooperative and comfortable Eyes: PERRL, conjunctivae normal, anicteric sclerae ENMT: external ear and nose normal, oropharynx normal Respiratory: normal respiratory effort, lungs clear to auscultation Cardiovascular: RRR, no murmur, no edema Gastrointestinal (Abdomen): normal bowel sounds, soft, nontender, no hepatosplenomegaly Skin: no rashes, warm and dry no jaundice Psychiatric: A+Ox3, euthymic affect Lymphatic: no lymphedema Results & Data ([facility]) Vital Signs (Past 12 Hours) Vital Signs Temp Pulse Pulse Resp BP BP Pulse Ox 04/08/21 09:02 94 H 20 163/98 H 95 04/08/21 07:23 90 18 138/81 95 04/08/21 05:41 78 99 04/08/21 05:11 36.6 C 105 H 16 162/99 H 96
[2021-04-08] MEDS ORDERED: SODIUM CHLORIDE 0.9% 250 ML IV PRN (10:27)
[2021-04-08] MEDS ORDERED: ONDANSETRON INJ 2 MG/ML 2 ML VIAL IV PRN (14:50)
[2021-04-08] MEDS ORDERED: ACETAMINOPHEN HOME PACK 500 MG TABLET PO PRN (14:50)
[2021-04-08] MEDS ORDERED: POLYETHYLENE (MIRALAX) 17 GM PACK PO PRN (14:50)
[2021-04-08] MEDS ORDERED: ACETAMINOPHEN 325 MG TAB PO PRN (14:50)
[2021-04-08 15:33] LABS: Hematocrit (blood only) 31.6 % (37-47); Hemoglobin 10.2 g/dL (12.0-16.0)
[2021-04-08] MEDS ORDERED: LAVAGE SOLUTION 4000ML PO SCH (17:00)
[2021-04-08] MEDS: PANTOprazole 40 MG in SYRINGE 0 ML IV SCH (20:15)
[2021-04-08] MEDS: DULoxetine HCL 30 MG CAP PO SCH (20:15)
[2021-04-08] MEDS: GABAPENTIN 300 MG CAP PO SCH (20:15)
[2021-04-08 21:24] LABS: Cdiff Antigen Negative; Cdiff Toxin A+B Negative Cdiff Toxin (Negative)
[2021-04-08 22:53] LABS: Hematocrit (blood only) 32.9 % (37-47); Hemoglobin 10.8 g/dL (12.0-16.0)
[2021-04-09 06:55] LABS: Hematocrit (blood only) 32.8 % (37-47); Hemoglobin 10.8 g/dL (12.0-16.0); Mean Corpuscular Hemoglobin 27.8 pg (25-34); Mean Corpuscular Hgb Conc 32.9 g/dL (32-36); Mean Corpuscular Volume 84.5 fL (80-100); Platelet Count 300 K/uL (130-400); RDW Coefficient of Variation 14.1 % (11.5-14.5); RDW Standard Deviation 43.3 fL (36.4-46.3); Red Blood Count 3.88 M/uL (4.2-5.4); White Blood Count 9.04 K/uL (4.8-10.8)
[2021-04-09 07:36] LABS: Albumin Level 3.6 gm/dl (3.4-5.0); BUN Creatinine Ratio 19.1 (10-20); Calcium 9.3 mg/dl (8.5-10.1); Creatinine Clr Calc Pharmacy 78.9 ml/min; Est GFR (African American) 78.4 ml/min; Est GFR (Non-African American) 67.7 ml/min; Magnesium 2.3 mg/dl (1.8-2.4); Potassium 4.4 mmol/L (3.5-5.1)
[2021-04-09 07:37] LABS: Albumin Globulin Ratio 1.1 (0.9-2); Bilirubin,Total 0.4 mg/dl (0.2-1); Globulin 3.4 gm/dl (2.5-4.0); Phosphorus 4.2 mg/dl (2.5-4.9)
--- NOTE | 2021-04-09 09:00 | Gastroenterology Progress Note ---
Date of Service April 09, 2021 Assessment & Plan (1) Lower gastrointestinal hemorrhage: Pt is a 61 y/o female seen for rectal bleeding and loose dark stools x 3 days. VS, blood ct stable. She recently had L knee replacement, prior to that had been on NSAIDs for pain control. CT w signs of diverticulosis but no diverticulitis, no inflammatory or obstructive signs. DDX: PUD, diverticular bleed, AVMs. - PPI IV BID - Monitor blood ct and transfuse prn - Stool cx, Cdiff check for diarrhea to r/o infectious process -> Cdiff gene +, toxin -. Stool cx pending - Keep NPO; Will administer tap water enema x 1 and proceed w EGD/Colonoscopy today Admission and Anticipated Discharge Date Admission Date: April 08, 2021 Supervising Physician Co-Signing Physician Notes Patient was explained in detail regarding risks, benefits, limitations and alternatives of the above endoscopic procedure. Risks of intravenous sedation used for procedure were also explained. Risks include, but not limited to perforation, bleeding, infection, respiratory distress, cardiac arrest and . Patient is also aware about the possibility of missed lesion. Patient's questions were answered. The patient verbalized understanding the information and agreed to undergo the procedure. Subjective Pt completed 1/2 of PROnoise, reports last BM overnight, no blood in stools but stool not entirely clear. Denies n/v, abd pain. Noted blood ct stable. Review of Systems Review of Systems: All systems reviewed & are unremarkable except as noted in HPI & below Physical Exam Constitutional: WD/WN, vitals as above well groomed, cooperative and comfortable Eyes: PERRL, conjunctivae normal, anicteric sclerae ENMT: external ear and nose normal, oropharynx normal Respiratory: normal respiratory effort, lungs clear to auscultation Cardiovascular: RRR, no murmur, no edema Gastrointestinal (Abdomen): normal bowel sounds, soft, nontender, no hepatosplenomegaly Skin: no rashes, warm and dry no jaundice Psychiatric: A+Ox3, euthymic affect Lymphatic: no lymphedema Results & Data ([facility]) Vital Signs (Past 12 Hours) Vital Signs Temp Pulse Pulse Resp BP Pulse Ox 04/09/21 07:35 36.8 C 95 H 16 133/85 95 04/09/21 07:00 94 H 04/09/21 03:09 36.7 C 103 H 19 142/91 H 95 04/08/21 23:24 102 H 04/08/21 22:47 36.9 C 86 18 143/92 H 95
[2021-04-09] MEDS: PANTOprazole 40 MG in SYRINGE 0 ML IV SCH ×2 (09:44→20:34)
[2021-04-09] MEDS: OXYBUTYNIN CHLORIDE XL 5 MG TABCR PO SCH (09:44)
[2021-04-09] MEDS: GABAPENTIN 300 MG CAP PO SCH ×2 (09:44→20:34)
[2021-04-09] MEDS: lisinopril 40 MG TAB PO SCH ×2 (09:45→14:03)
--- NOTE | 2021-04-09 12:13 | Anesthesiology Consultation ---
Date of Service April 09, 2021 Assessment & Plan (1) Encounter for pre-operative examination: Chart Review Chart Review: Acceptable Risk for Surgery, Patient NOT seen in Pre Admission Testing and data entry coordinator initiated Consults Requested none Proposed Anesthesia Anesthesia Type: MAC Risk / Benefits Reviewed With: PT / POA / Parent / Guardian, Accepts Plan and Informed Consent Obtained History Surgery Operation Date: 04/09/21 16:00 Proposed Procedures p Colonoscopy EGD Dr. Messer - Mariana Messer MD Height/Weight Height: 5 ft 4 in Weight: 110.2 kg Allergies Allergy/AdvReac Type Severity Reaction Status Date / Time sulindac Allergy Mild rash Verified 04/08/21 07:15 Medications Home Medications Medication Instructions Recorded Confirmed Last Taken duloxetine 30 mg PO HS 02/18/21 04/08/21 04/07/21 gabapentin 300 mg PO BID 02/18/21 04/08/21 04/07/21 lisinopril 40 mg PO QAM 02/18/21 04/08/21 04/07/21 oxybutynin chloride [Ditropan XL] 10 mg PO QAM 02/18/21 04/08/21 04/07/21 potassium gluconate 595 mg PO BID 02/18/21 04/08/21 03/09/21 08:00 acetaminophen 1,000 mg PO Q8 PRN #90 tab 03/10/21 04/08/21 Unknown aspirin 81 mg PO BID #56 tab 03/10/21 04/08/21 04/07/21 oxycodone 5 mg PO Q6H PRN #30 tab MDD 4 03/10/21 04/08/21 Unknown sennosides [Senokot] 17.2 mg PO HS PRN #30 tab 03/10/21 04/08/21 Unknown celecoxib 200 mg PO DAILY 04/08/21 04/08/21 04/07/21 Active Medications Generic Name Dose Route Start Last Admin Trade Name Freq PRN Reason Stop Dose Admin Duloxetine HCl 30 mg 04/08/21 21:00 04/08/21 20:15 Duloxetine Hcl 30 Mg Cap PO 05/08/21 20:59 30 mg HS ROSE Administration Gabapentin 300 mg 04/08/21 21:00 04/09/21 09:44 Gabapentin 300 Mg Cap PO 05/08/21 20:59 Not Given BID ROSE Pantoprazole Sodium 40 mg/ 10 mls @ 5 mls/min 04/08/21 21:00 04/09/21 09:44 Syringe IV 05/08/21 20:59 5 mls/min BID ROSE Administration Lisinopril 40 mg 04/09/21 09:00 04/09/21 09:45 Lisinopril 40 Mg Tab PO 05/09/21 08:59 Not Given QAM ROSE Oxybutynin Chloride 10 mg 04/09/21 09:00 04/09/21 09:44 Oxybutynin Chloride Xl 5 Mg Tabcr PO 05/09/21 08:59 Not Given QAM ROSE NPO Date Last Intake of Fluids: 04/08/21 Time Last Intake of Fluids: 23:00 Date Last Intake of Solids: 04/07/21 Time Last Intake of Solids: 17:00 Past Medical History Medical History (Updated 04/09/21 @ 12:13 by Leon Burgos MD) CKD (chronic kidney disease) Depression Fibromyalgia Stable Hyperlipidemia NO MEDS Hypertension Lower gastrointestinal hemorrhage Osteoarthritis Peripheral neuropathy BLE Prediabetes Per records Urinary frequency Exercise / Class Metabolic Activity II 4-5 Yardwork/Stairs/Walk up hill Past Family History Family History Father Family history of diabetes mellitus Other No family history of adverse response to anesthesia Past Surgical History Surgical History History of arthroscopy of knee with meniscus repair on left side History of partial hysterectomy History of tooth extraction Past Anesthesia History No Hx of Anesthesia Complications and No Family Hx of Anesthesia Complications History of PONV No Hx of PONV and No Hx of Motion Sickness Social History Smoking Status: Former smoker tobacco type: cigarettes Do You Dip or Chew Tobacco: No Hx Alcohol Use: No Hx Substance Use: No substance use type: does not use Physical Exam Vital Signs Last Vital Signs Temp 37 C 04/09/21 11:51 Pulse 104 H 04/09/21 11:51 Resp 18 04/09/21 11:51 BP 163/114 H 04/09/21 11:51 Pulse Ox 94 04/09/21 11:51 ENMT Mouth: no dentition abnormality Thyromental Distance: > or= 3.5 Finger Breadths Neck normal visual inspection and trachea midline; neck extension not limited Respiratory normal respiratory effort; no respiratory distress Auscultation: lungs clear to auscultation bilaterally; no crackles, no rhonchi and no wheezes Cardiovascular Rate/Rhythm: regular rate and regular rhythm Heart Sounds: no gallop, no murmur and no cardiac rub Musculoskeletal Spine: normal cervical ROM Neurologic moves all extremities and awake Psychiatric Orientation: alert Testing Laboratory Results 04/09/21 06:42 04/09/21 06:42 PT 9.9 Seconds (9.0-12.0) 04/08/21 05:24 INR 1.0 (0.9-1.1) 04/08/21 05:24 APTT 24.8 Seconds (21.0-31.0) 04/08/21 05:24 Blood Type B Positive 04/08/21 05:59 Antibody Screen NEGATIVE 04/08/21 05:59 04/08/21 18:50 Escherichia coli Shiga Toxins Test - Preliminary Stool Stool Culture - Preliminary No Salmonella isolated to date, No Shigella isolated to date, No Campylobacter jejuni isolated to date.
--- NOTE | 2021-04-09 12:13 | History & Physical Bridge Note ---
Date of Service April 09, 2021 History & Physical Bridge Note I have examined the patient, reviewed the History & Physical and in the interval since the performance of the History & Physical I have noted the following changes of clinical significance: no changes noted
[2021-04-09] MEDS ORDERED: LIDOCAINE 2% 2 ML VIAL/AMP(20MG/ML) INFIL ONE ×2 (12:17→12:20)
[2021-04-09] MEDS ORDERED: PROPOFOL IV EMULSION 10 MG/ML 20 ML VIAL IV ONE ×4 (12:17→13:03)
--- NOTE | 2021-04-09 13:06 | GI REPORT ---
Patient Name: Isabelle Dunlap Procedure Date: 04/09/2021 12:24 PM Date of : 1960 Admit Type: Inpatient Age: 61 Gender: Female Attending MD: Mariana Messer MD Procedure: Upper GI endoscopy Providers: Mariana Messer MD Referring MD: Altaf Mchugh Indications: Hematochezia Medicines: Propofol per Anesthesia Complications: No immediate complications. Estimated Blood Loss: Estimated blood loss: none. Procedure: Pre-Anesthesia Assessment: - Prior to the procedure, a History and Physical was performed, and patient medications, allergies and sensitivities were reviewed. The patient's tolerance of previous anesthesia was reviewed. - The risks and benefits of the procedure and the sedation options and risks were discussed with the patient. All questions were answered and informed consent was obtained. - Patient identification and proposed procedure were verified prior to the procedure by the physician and the nurse. The procedure was verified in the procedure room. - Pre-procedure physical examination revealed no contraindications to sedation. After obtaining informed consent, the endoscope was passed under direct vision. Throughout the procedure, the patient's blood pressure, pulse, and oxygen saturations were monitored continuously. The Endoscope was introduced through the mouth, and advanced to the second part of duodenum. The upper GI endoscopy was accomplished without difficulty. The patient tolerated the procedure well. Findings: The examined esophagus was normal. The entire examined stomach was normal. The duodenal bulb and second portion of the duodenum were normal. Impression: - Normal esophagus. - Normal stomach. - Normal duodenal bulb and second portion of the duodenum. Recommendation: - Perform a colonoscopy today. Mariana Messer MD 04/09/2021 1:06:01 PM This report has been signed electronically. Note Initiated On: 04/09/2021 12:24 PM Number of Addenda: 0 I attest to the content of the Intraoperative Record and orders documented therein, exceptions below {[id number]}
--- NOTE | 2021-04-09 13:12 | Anesthesiology Progress Note ---
Date of Service April 09, 2021 Anesthesia Post Procedure Vital Signs Vital Signs: Temp Pulse Pulse Resp BP Pulse Ox 04/09/21 13:00 107 H 18 114/72 99 04/09/21 11:51 37 C 104 H 18 163/114 H 94 04/09/21 11:26 36.9 C 98 H 16 138/93 93 04/09/21 07:35 36.8 C 95 H 16 133/85 95 04/09/21 07:00 94 H 04/09/21 03:09 36.7 C 103 H 19 142/91 H 95 04/08/21 23:24 102 H 04/08/21 22:47 36.9 C 86 18 143/92 H 95 04/08/21 19:34 36.7 C 83 17 155/93 H 98 04/08/21 14:50 36.6 C 88 16 133/87 92 04/08/21 13:27 95 H 16 144/90 H 97 Transfer of Care Handoff Completed per policy Notes Mental Status: alert / awake / arousable and participated in evaluation Patient Amnestic to Procedure: Yes Nausea / Vomiting: adequately controlled Pain: adequately controlled Airway Patency, RR, SpO2: stable & adequate BP & HR: stable & adequate Hydration State: stable & adequate Anesthetic Complications: no major complications apparent and Pt Satisfied with anesthetic care
--- NOTE | 2021-04-09 13:12 | GI REPORT ---
Patient Name: Isabelle Dunlap Procedure Date: 04/09/2021 12:26 PM Date of : 1960 Admit Type: Inpatient Age: 61 Gender: Female Attending MD: Mariana Messer MD Procedure: Colonoscopy Providers: Mariana Messer MD Referring MD: Altaf Mchugh Indications: Rectal bleeding Medicines: Propofol per Anesthesia Complications: No immediate complications. Estimated Blood Loss: Estimated blood loss: none. Procedure: Pre-Anesthesia Assessment: - Prior to the procedure, a History and Physical was performed, and patient medications, allergies and sensitivities were reviewed. The patient's tolerance of previous anesthesia was reviewed. - The risks and benefits of the procedure and the sedation options and risks were discussed with the patient. All questions were answered and informed consent was obtained. - Patient identification and proposed procedure were verified prior to the procedure by the physician and the nurse. The procedure was verified in the procedure room. - Pre-procedure physical examination revealed no contraindications to sedation. After I obtained informed consent, the scope was passed under direct vision. Throughout the procedure, the patient's blood pressure, pulse, and oxygen saturations were monitored continuously. The scope was introduced through the anus and advanced to the terminal ileum. The colonoscopy was performed without difficulty. The patient tolerated the procedure well. The quality of the bowel preparation was good. The terminal ileum, ileocecal valve, appendiceal orifice, and rectum were photographed. Findings: The perianal and digital rectal examinations were normal. The terminal ileum appeared normal. A 15 mm polyp was found in the cecum. The polyp was sessile. The polyp was removed with a saline injection-lift technique using a hot snare. Resection and retrieval were complete. Verification of patient identification for the specimen was done by the physician and nurse using the patient's name and date. To prevent bleeding after the polypectomy, three hemostatic clips were successfully placed (MR conditional). Multiple small and large-mouthed diverticula were found in the entire colon. Non-bleeding internal hemorrhoids were found during retroflexion. The hemorrhoids were small. Impression: - The examined portion of the ileum was normal. - One 15 mm polyp in the cecum, removed using injection-lift and a hot snare. Resected and retrieved. Clips (MR conditional) were placed. - Diverticulosis in the entire examined colon. - Non-bleeding internal hemorrhoids. Recommendation: - Await pathology results. - Repeat colonoscopy for surveillance based on pathology results. Mariana Messer MD 04/09/2021 1:11:53 PM This report has been signed electronically. Note Initiated On: 04/09/2021 12:26 PM Number of Addenda: 0 I attest to the content of the Intraoperative Record and orders documented therein, exceptions below {[id number]}
--- NOTE | 2021-04-09 13:41 | Gastroenterology Progress Note ---
Date of Service April 09, 2021 Assessment & Plan Admission and Anticipated Discharge Date Admission Date: April 08, 2021 Subjective EGD normal. Colonoscopy showed one inflammatory appearing cecal polyp, removed. Di verticulosis. can advance diet and recall GI if needed. Results & Data ([facility]) Vital Signs (Past 12 Hours) Vital Signs Temp Pulse Pulse Resp BP Pulse Ox 04/09/21 13:32 97 H 18 138/93 98 04/09/21 13:16 102 H 18 140/103 H 98 04/09/21 13:00 107 H 18 114/72 99 04/09/21 11:51 37 C 104 H 18 163/114 H 94 04/09/21 11:26 36.9 C 98 H 16 138/93 93 04/09/21 07:35 36.8 C 95 H 16 133/85 95 04/09/21 07:00 94 H 04/09/21 03:09 36.7 C 103 H 19 142/91 H 95
--- NOTE | 2021-04-09 15:07 | Hospitalist Progress Note ---
Date of Service April 09, 2021 Assessment & Plan (1) Lower gastrointestinal hemorrhage: Likely secondary to diverticular bleed No more episodes since admission and no abdominal symptoms Hemoglobin remains stable at more than 10 Negative C. difficile colitis and stool culture is preliminary negative Appreciate GI input and recommendation Status post unremarkable EGD and Colonoscopy showed 1 inflammatory appearing polyp that was removed and diverticulosis without evidence of bleeding Diet started Like to be discharged tomorrow (2) Hypertension: - Allow lisinopril for now, may need to hold in AM pending BP and bleed. (3) Hyperlipidemia: - Diet, not on statin therapy (4) CKD (chronic kidney disease): - Follow with am BMP - BUN 30, elevated secondary to acute gi bleed as above - Cr is 1.13 and appears to be around her stage II baseline- -creatinine has been normalized (5) Depression: - Cont cymbalta 30 mg HS (6) Prediabetes: - Diet and exercise to be encouraged - A1C= 5.9 at end of January this year (7) Status post total left knee replacement: - Completed by Dr. Nevarez on 03/10, nearly 1 month ago. - Holding baby asa 81 mg BID and celecoxib - pending colonoscopy results - may need to discuss if she can stop taking DVT ppx with ortho. -Can continue with aspirin and celecoxib as before DVT ppx: teds, no chemical anticoagulation in the setting of GI bleed. CODE: Full Dispo: Likely discharge home tomorrow Admission and Anticipated Discharge Date Admission Date: April 08, 2021 Subjective 04/09/2021 The patient was seen and examined in medical telemetry unit She denies any symptoms and she has had bowel movement without any evidence of bleeding No abdominal pain nausea and or vomiting We will have EGD and colonoscopy today Review of Systems Review of Systems: All systems reviewed and are unremarkable except as noted below Gastrointestinal: no abdominal pain and no blood in stools Physical Exam Physical Exam: General: awake, alert, no apparent distress, + obese BMI 41.7 Head: Normocephalic, atraumatic ENT: PERRL, EOMI, no pharyngeal exudate, mucous membranes slightly dry Chest: Clear to auscultation, on room air, no adventitious breath sounds Cardiac: Regular rate and rhythm, no murmur, no JVD, normal peripheral pulses, good capillary refill Abdominal: NABS x 4 quadrants, soft, nondistended, nontender to palpation, no rebound or guarding Extremities: Left knee status post TKA, incision healing well, minimal edema, no erythema, no fluid wave, ecchymosis is resolving. Otherwise normal inspection, no peripheral edema or erythema, calfs nontender to palpation Psych: Normal mood and affect Neuro: AAO x 3, strength intact bilaterally and rated 5/5, no motor deficits, speech is clear, no peripheral sensory deficits Results & Data Results & Data ([facility]) Vital Signs (Past 12 Hours) Vital Signs Temp Pulse Pulse Resp BP Pulse Ox 04/09/21 14:25 36.6 C 98 H 16 146/97 H 96 04/09/21 13:55 36.8 C 92 H 18 155/88 H 97 04/09/21 13:40 36.5 C 99 H 16 159/92 H 95 04/09/21 13:32 97 H 18 138/93 98 04/09/21 13:16 102 H 18 140/103 H 98 04/09/21 13:00 107 H 18 114/72 99 04/09/21 11:51 37 C 104 H 18 163/114 H 94 04/09/21 11:26 36.9 C 98 H 16 138/93 93 04/09/21 07:35 36.8 C 95 H 16 133/85 95 04/09/21 07:00 94 H 04/09/21 03:09 36.7 C 103 H 19 142/91 H 95 Laboratory Results Short CBC 04/08/21 04/08/21 04/09/21 Range/Units 15:16 22:33 06:42 WBC 9.04 (4.8-10.8) K/uL Hgb 10.2 L 10.8 L 10.8 L (12.0-16.0) g/dL Hct 31.6 L 32.9 L 32.8 L (37-47) % Plt Count 300 (130-400) K/uL BMP 04/09/21 06:42 Sodium 140 Potassium 4.4 Chloride 109 H Carbon Dioxide 25 BUN 18 Creatinine 0.92 Glucose 110 H Calcium 9.3 Liver Function 04/09/21 Range/Units 06:42 Total Bilirubin 0.4 (0.2-1) mg/dl AST 16 (15-37) U/L ALT 20 (12-78) U/L Alkaline Phosphatase 81 (45-117) U/L Albumin 3.6 (3.4-5.0) gm/dl Medications Administered Current Inpatient Medications Acetaminophen (Acetaminophen 325 Mg Tab) 650 mg PO Q4H PRN PRN Reason: Pain or Fever Stop: 05/08/21 14:49 Duloxetine HCl (Duloxetine Hcl 30 Mg Cap) 30 mg PO HS [facility] Stop: 05/08/21 20:59 Last Admin: 04/08/21 20:15 Dose: 30 mg Documented by: Gabapentin (Gabapentin 300 Mg Cap) 300 mg PO BID [facility] Stop: 05/08/21 20:59 Last Admin: 04/09/21 09:44 Dose: Not Given Documented by: Pantoprazole Sodium 40 mg/ (Syringe) 10 mls @ 5 mls/min IV BID [facility] Stop: 05/08/21 20:59 Last Admin: 04/09/21 09:44 Dose: 5 mls/min Documented by: Lisinopril (Lisinopril 40 Mg Tab) 40 mg PO QAM [facility] Stop: 05/09/21 08:59 Last Admin: 04/09/21 14:03 Dose: 40 mg Documented by: Ondansetron HCl (Ondansetron Inj 2 Mg/Ml 2 Ml Vial) 4 mg IV Q6H PRN PRN Reason: Nausea Stop: 05/08/21 14:49 Oxybutynin Chloride (Oxybutynin Chloride Xl 5 Mg Tabcr) 10 mg PO QAM [facility] Stop: 05/09/21 08:59 Last Admin: 04/09/21 09:44 Dose: Not Given Documented by: Polyethylene Glycol (Polyethylene (Miralax) 17 Gm Pack) 17 gm PO DAILY PRN PRN Reason: Constipation Stop: 05/08/21 14:49
[2021-04-09] MEDS: DULoxetine HCL 30 MG CAP PO SCH (20:33)
--- NOTE | 2021-04-10 05:48 | Electrocardiogram Report ---
Test Reason : Blood Pressure : / mmHG Vent. Rate : 093 BPM Atrial Rate : 093 BPM P-R Int : 148 ms QRS Dur : 070 ms QT Int : 376 ms P-R-T Axes : 028 -07 055 degrees QTc Int : 467 ms Poor data quality, interpretation may be adversely affected Normal sinus rhythm Low voltage QRS Inferior infarct (cited on or before 22-AUG-2020) Cannot rule out Anterior infarct , age undetermined Abnormal ECG When compared with ECG of 25-FEB-2021 12:06, QRS duration has decreased Minimal criteria for Anterior infarct are now Present Confirmed by Chong Ferrera ([id number]) on 04/10/2021 5:47:41 AM Referred By: REFERRED SELF Confirmed By:Chong Ferrera
[2021-04-10] MEDS: OXYBUTYNIN CHLORIDE XL 5 MG TABCR PO SCH (08:17)
[2021-04-10] MEDS: PANTOprazole 40 MG in SYRINGE 0 ML IV SCH (08:17)
[2021-04-10] MEDS: GABAPENTIN 300 MG CAP PO SCH (08:17)
[2021-04-10] MEDS: lisinopril 40 MG TAB PO SCH (09:20)
[2021-04-10 09:29] LABS: Basophils # (auto) 0.04 K/uL (0-0.2); Basophils % (auto) 0.5 %; Eosinophils # (auto) 0.89 K/uL (0-0.5); Eosinophils % (auto) 11.9 %; Hematocrit (blood only) 30.5 % (37-47); Immature Granulocytes # (auto) 0.03 K/uL (0.00-0.02); Immature Granulocytes % (auto) 0.4 %; Lymphocytes # (auto) 1.68 K/uL (1.2-3.4); Lymphocytes % (auto) 22.5 %; Mean Corpuscular Hemoglobin 27.7 pg (25-34); Mean Corpuscular Hgb Conc 32.8 g/dL (32-36); Mean Corpuscular Volume 84.5 fL (80-100); Mean Platelet Volume 10.1 fL (7.4-10.4); Monocytes # (auto) 0.34 K/uL (0.11-0.59); Monocytes % (auto) 4.6 %; Neutrophils # (auto) 4.48 K/uL (1.4-6.5); Neutrophils % (auto) 60.1 %; Platelet Count 266 K/uL (130-400); RDW Standard Deviation 43.2 fL (36.4-46.3); Red Blood Count 3.61 M/uL (4.2-5.4); White Blood Count 7.46 K/uL (4.8-10.8)
[2021-04-10 09:56] LABS: Albumin Level 3.4 gm/dl (3.4-5.0); BUN Creatinine Ratio 16.3 (10-20); Calcium 8.8 mg/dl (8.5-10.1); Creatinine Clr Calc Pharmacy 72.6 ml/min; Est GFR (African American) 70.9 ml/min; Est GFR (Non-African American) 61.2 ml/min; Potassium 3.7 mmol/L (3.5-5.1)
[2021-04-10 10:02] LABS: Bilirubin,Total 0.3 mg/dl (0.2-1); Globulin 3.4 gm/dl (2.5-4.0); Total Protein 6.8 gm/dl (6.4-8.2)
--- NOTE | 2021-04-10 10:57 | Hospitalist Progress Note ---
Date of Service April 10, 2021 Assessment & Plan (1) Lower gastrointestinal hemorrhage: Likely secondary to diverticular bleed No more episodes since admission and no abdominal symptoms Hemoglobin remains stable at more than 10 Negative C. difficile colitis and stool culture is preliminary negative Appreciate GI input and recommendation Status post unremarkable EGD and Colonoscopy showed 1 inflammatory appearing polyp that was removed and diverticulosis without evidence of bleeding She has been tolerating regular diet and has been ambulating in the hallway without any problem Her hemoglobin remains stable and no more bleeding per rectum Will be discharged home this afternoon (2) Hypertension: - Allow lisinopril for now, may need to hold in AM pending BP and bleed. (3) Hyperlipidemia: - Diet, not on statin therapy (4) CKD (chronic kidney disease): - Follow with am BMP - BUN 30, elevated secondary to acute gi bleed as above - Cr is 1.13 and appears to be around her stage II baseline- -creatinine has been normalized (5) Depression: - Cont cymbalta 30 mg HS (6) Prediabetes: - Diet and exercise to be encouraged - A1C= 5.9 at end of January this year (7) Status post total left knee replacement: - Completed by Dr. Nevarez on 03/10, nearly 1 month ago. - Holding baby asa 81 mg BID and celecoxib - pending colonoscopy results - may need to discuss if she can stop taking DVT ppx with ortho. -Can continue with aspirin and celecoxib as before DVT ppx: teds, no chemical anticoagulation in the setting of GI bleed. CODE: Full Discharge this afternoon Admission and Anticipated Discharge Date Admission Date: April 08, 2021 Subjective 04/09/2021 The patient was seen and examined in medical telemetry unit She denies any symptoms and she has had bowel movement without any evidence of bleeding No abdominal pain nausea and or vomiting We will have EGD and colonoscopy today 04/10/2021 The patient was seen and examined in medical telemetry unit She has been tolerating regular diet and did not have any more bleeding per rectum She is a status post EGD and colonoscopy with 1 polypectomy She will be discharged home this afternoon Review of Systems Review of Systems: All systems reviewed and are unremarkable except as noted below Gastrointestinal: no abdominal pain, no nausea, no vomiting and no diarrhea/loose stools Physical Exam Physical Exam: Lying in bed comfortably Head: Normocephalic, atraumatic ENT: PERRL, EOMI, no pharyngeal exudate, mucous membranes slightly dry Chest: Clear to auscultation, on room air, no adventitious breath sounds Cardiac: Regular rate and rhythm, no murmur, no JVD, normal peripheral pulses, good capillary refill Abdominal: NABS x 4 quadrants, soft, nondistended, nontender to palpation, no rebound or guarding and bowel sounds present Extremities: Left knee status post TKA, incision healing well, minimal edema, no erythema, no fluid wave, ecchymosis is resolving. Otherwise normal inspection, no peripheral edema or erythema, calfs nontender to palpation Psych: Normal mood and affect Neuro: AAO x 3, strength intact bilaterally and rated 5/5, no motor deficits, speech is clear, no peripheral sensory deficits Results & Data Results & Data ([facility]) Vital Signs (Past 12 Hours) Vital Signs Temp Pulse Pulse Resp BP BP Pulse Ox 04/10/21 10:43 37.0 C 96 H 20 111/73 95 04/10/21 07:38 92 H 04/10/21 07:37 36.8 C 99 H 20 124/81 95 04/10/21 03:58 36.6 C 109 H 20 161/85 H 93 04/09/21 23:35 37.1 C 90 20 137/82 96 04/09/21 23:08 97 H Laboratory Results Short CBC 04/10/21 Range/Units 09:15 WBC 7.46 (4.8-10.8) K/uL Hgb 10.0 L (12.0-16.0) g/dL Hct 30.5 L (37-47) % Plt Count 266 (130-400) K/uL BMP 04/10/21 09:15 Sodium 139 Potassium 3.7 D Chloride 109 H Carbon Dioxide 22 BUN 16 Creatinine 1.00 Glucose 170 H Calcium 8.8 Liver Function 04/10/21 Range/Units 09:15 Total Bilirubin 0.3 (0.2-1) mg/dl AST 22 (15-37) U/L ALT 28 (12-78) U/L Alkaline Phosphatase 76 (45-117) U/L Albumin 3.4 (3.4-5.0) gm/dl Medications Administered Current Inpatient Medications Acetaminophen (Acetaminophen 325 Mg Tab) 650 mg PO Q4H PRN PRN Reason: Pain or Fever Stop: 05/08/21 14:49 Duloxetine HCl (Duloxetine Hcl 30 Mg Cap) 30 mg PO HS [facility] Stop: 05/08/21 20:59 Last Admin: 04/09/21 20:33 Dose: 30 mg Documented by: Gabapentin (Gabapentin 300 Mg Cap) 300 mg PO BID [facility] Stop: 05/08/21 20:59 Last Admin: 04/10/21 08:17 Dose: 300 mg Documented by: Pantoprazole Sodium 40 mg/ (Syringe) 10 mls @ 5 mls/min IV BID [facility] Stop: 05/08/21 20:59 Last Admin: 04/10/21 08:17 Dose: 5 mls/min Documented by: Lisinopril (Lisinopril 40 Mg Tab) 40 mg PO QAM [facility] Stop: 05/09/21 08:59 Last Admin: 04/10/21 09:20 Dose: 40 mg Documented by: Ondansetron HCl (Ondansetron Inj 2 Mg/Ml 2 Ml Vial) 4 mg IV Q6H PRN PRN Reason: Nausea Stop: 05/08/21 14:49 Oxybutynin Chloride (Oxybutynin Chloride Xl 5 Mg Tabcr) 10 mg PO QAM [facility] Stop: 05/09/21 08:59 Last Admin: 04/10/21 08:17 Dose: 10 mg Documented by: Polyethylene Glycol (Polyethylene (Miralax) 17 Gm Pack) 17 gm PO DAILY PRN PRN Reason: Constipation Stop: 05/08/21 14:49
--- NOTE | 2021-04-11 08:55 | Discharge Summary ---
Date of Service April 11, 2021 Admission HPI Per Admitting Provider This is a 61 yo F with PMHx of s/p Left total knee replacement on 03/10/21, HTN, HLD, Peripheral neuropathy, fibromyalgia, CKD, prediabetes, depression and remote smoking hx of 25 pack years, quit in 2008, who presents with acute blood bowel movements x 2 days. She had been camping last Tuesday through Tuesday, and came home yesterday. She had noticed one bloody bowel movement on Tuesday but thought that it was dye from a strawberry mountain pie she had eaten. Then yesterday had bright red bloody stool x 1. She had called her family doctor and they recommended that she come into the office and had an appointment for today. She then presented to the ER early this morning with continued bright red bloody bowel movements, first episode today woke her up from sleep. She denies any abdominal pain, nausea or vomiting. She further denies any lightheadedness or dizziness, chest pain or shortness of breath. Total today she has had at least 8 bloody bowel movements since waking up. Denies any dark tarry stools. Patient denies history of such. She has never had a colonoscopy in the past for routine screening. She denies any drinking from streams or consumption of raw or undercooked foods during her camping trip. She did not swim in [place] water or accidentally consume this water or prepare food in it. Pt reports having bottled water on their trip. She reports multiple family cancers involving lung cancer, liver cancer and ovarian, however not GI. Plans for colonoscopy/egd tomorrow. GI has been consulted. Pt has never received a blood transfusion before, but is agreeable if needed. Admission Exam Per Admitting Provider Review of Systems: Constitutional: No fever, sweats or chills Eyes: No diplopia, no worsening or blurred vision ENT: normal hearing, no trouble swallowing Respiratory: No cough, sputum, dyspnea at rest or on exertion Cardiovascular: No chest pain, tightness or palpitations Abdomen: As per HPI. Musculoskeletal: + Left knee doing well, hiking, walking without difficulty, no joint pain, calf pain, swelling Neurologic: No weakness, numbness/tingling, or balance problems Psychiatric: No anxiety or depression Skin: No rash or itch Principal Diagnosis Bright red rectal bleed, status post colonoscopy and 1 polypectomy without any e vidence of bleeding, status post negative EGD Discharge Exam Constitutional WD/WN, vitals as above + morbidly obese, well groomed, cooperative and comfortable Eyes PERRL, conjunctivae normal, anicteric sclerae ENMT external ear and nose normal, oropharynx normal Mouth: + dentition abnormality (Missing); no chipped teeth and no loose teeth Mallampati Class: III Neck trachea midline and + thick neck; neck extension not limited Respiratory normal respiratory effort, lungs clear to auscultation normal respiratory effort; no respiratory distress Auscultation: lungs clear to auscultation bilaterally; no crackles, no rhonchi and no wheezes Cardiovascular RRR, no murmur, no edema Rate/Rhythm: regular rate and regular rhythm Heart Sounds: no gallop, no murmur and no cardiac rub Gastrointestinal (Abdomen) normal bowel sounds, soft, nontender, no hepatosplenomegaly Musculoskeletal Spine: normal cervical ROM Skin no rashes, warm and dry no jaundice Neurologic moves all extremities and awake Psychiatric A+Ox3, euthymic affect Orientation: alert Lymphatic no lymphedema Discharge Data Allergies Allergy/AdvReac Type Severity Reaction Status Date / Time sulindac Allergy Mild rash Verified 04/08/21 07:15 Consultations 04/08/21 07:56 ED Decision to Admit Stat 04/08/21 08:18 Consult Gastroenterology Stat 04/08/21 14:50 Consult Gastroenterology Routine Procedures Performed Operation Date: 04/09/21 16:00 Actual Procedures p Colonoscopy Polypectomy - Mariana Messer MD s Esophagogastroduodenoscopy - Mariana Messer MD Ordered Studies 04/08/21 05:25 CT abd pelvis IV con only Stat Hospital Course (1) Lower gastrointestinal hemorrhage: Likely secondary to diverticular bleed No more episodes since admission and no abdominal symptoms Hemoglobin remains stable at more than 10 Negative C. difficile colitis and stool culture is preliminary negative Appreciate GI input and recommendation Status post unremarkable EGD and Colonoscopy showed 1 inflammatory appearing polyp that was removed and diverticulosis without evidence of bleeding She has been tolerating regular diet and has been ambulating in the hallway without any problem Her hemoglobin remains stable and no more bleeding per rectum Will be discharged home this afternoon (2) Hypertension: - Allow lisinopril for now, may need to hold in AM pending BP and bleed. (3) Hyperlipidemia: - Diet, not on statin therapy (4) CKD (chronic kidney disease): - Follow with am BMP - BUN 30, elevated secondary to acute gi bleed as above - Cr is 1.13 and appears to be around her stage II baseline- -creatinine has been normalized (5) Depression: - Cont cymbalta 30 mg HS (6) Prediabetes: - Diet and exercise to be encouraged - A1C= 5.9 at end of January this year (7) Status post total left knee replacement: - Completed by Dr. Nevarez on 03/10, nearly 1 month ago. - Holding baby asa 81 mg BID and celecoxib - pending colonoscopy results - may need to discuss if she can stop taking DVT ppx with ortho. -Can continue with aspirin and celecoxib as before DVT ppx: teds, no chemical anticoagulation in the setting of GI bleed. CODE: Full Discharge this afternoon Total Time Total Time Spent Total Time Spent (In Minutes): 35 Minutes Total Time Includes: Examination of the Patient, Discharge Planning, Medication Reconciliation and Communication With Other Providers Discharge Plan Discharge Items Patient Disposition: Home - Self-Care Reason For Visit: BRBPR Discharge Diagnosis: Bright red rectal bleed, status post colonoscopy and 1 polypectomy without any evidence of bleeding, status post negative EGD Condition on Discharge: Good Activity: Resume your previous activity Non-emergency contact: Primary Care Provider Call non-emergency contact if: you have any medication questions and your symptoms worsen Follow-up/Referrals: Mame Garza MD [Primary Care Provider] - (Date & Time 04/15/2021 12:00 PM Provider Bharathi Betancur MD Department Family Medicine [facility] ) Diet: Regular and Low Fiber Addtl Attending Provider Instructions: Try to drink more fluid No change in new medications Pending Studies at Discharge: Yes Studies:: Colon biopsy result Stand-Alone Forms: My [email or web address], Smoking Cessation Medications and DC Order Prescriptions: Continued celecoxib 200 mg capsule 200 mg PO DAILY RF: 0 oxybutynin chloride [Ditropan XL] 10 mg Tablet Extended Release 24hr 10 mg PO QAM RF: 0 gabapentin 300 mg Capsule 300 mg PO BID RF: 0 lisinopril 40 mg Tablet 40 mg PO QAM RF: 0 duloxetine 30 mg Capsule,Delayed Release(Dr/Ec) 30 mg PO HS RF: 0 potassium gluconate 595 mg (99 mg) Tablet 595 mg PO BID RF: 0 acetaminophen 500 mg Tablet 1,000 mg PO Q8 PRN (Reason: fever or pain) Qty: 90 RF: 0 aspirin 81 mg Tablet,Delayed Release (Dr/Ec) 81 mg PO BID Qty: 56 RF: 0 oxycodone 5 mg Tablet 5 mg PO Q6H MDD 4 PRN (Reason: pain) Qty: 30 RF: 0 sennosides [Senokot] 8.6 mg Tablet 17.2 mg PO HS PRN (Reason: constipation) Qty: 30 RF: 0 Discharge Orders: Discharge Order (Routine); Ordered 04/10/21 Ordered By: Altaf Mchugh Admission Data Admit Date/Time: 04/08/21 08:37 Attending Provider: Altaf Mchugh Admit Provider: Altaf Mchugh Primary Care Provider: Mame Garza Other Providers: Mariana Messer ; Altaf Mchugh Other Interventions: Discharge Summary Assessment (RN) Last Done: 04/10/21 13:43
== END 2021-04-10 14:24 | disposition home or self-care (01) ==
LOC: 2N 05:06 → ED 05:06 → 2N 14:06